=== PATIENT | female | born 1935 | race Caucasian/White ===

== ENCOUNTER 2016-11-05 15:59 | Inpatient (IN) | payer MEDICARE ==
--- NOTE | 2016-11-05 16:32 | EDPRACDOC ---
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 THE PT LIVES WITH HER DAUGHTER. THE DAUGHTER SAID THAT PT HAS BEEN HAVING HALLUCINATIONS AND HAS BEEN ACTING STRANGELY LAST NIGHT. THE PT IS STILL HAVING THESE SX, SO SHE TOOK HER TO HER DR. THE DR SENT HER HERE. PT DENIES ANY PAIN. SHE WAS ADMITTED ON 10/21 FOR COPD AND A.FIB. <Rukhsana Jones - Last Filed: 11/05/16 22:34> <Rosendo Matos - Last Filed: 11/06/16 14:40> - General Information Chief Complaint: Altered Mental Status Stated Complaint: DR. DE LEON SENT FOR DISORIENTATION Time Seen by Provider: 11/05/16 16:20 Home Medications: Home Medications Metoprolol Succinate (XL) [Toprol Xl] 100 mg PO DAILY 10/09/13 Furosemide [Lasix] 40 mg PO DAILY 10/16/13 Paroxetine [Paxil] 40 mg PO DAILY 10/21/13 Pantoprazole Sodium [Protonix] 40 mg PO DAILY 02/22/15 Aspirin (Enteric Coated) [Ecotrin] 81 mg PO DAILY 10/21/16 Ergocalciferol (Vitamin D2) [Vitamin D] 50,000 units PO We@0900 10/21/16 Loperamide HCl [Loperamide] 2 - 4 mg PO Q4H PRN 10/21/16 Potassium Chloride [Klor-Con M10] 10 meq PO DAILY 10/21/16 Magnesium Oxide [Mag-Ox] 400 mg PO BID #120 tablet 10/25/16 Albuterol/Ipratropium Neb [Duoneb] 3 ml NEB Q6H PRN 11/05/16 Donepezil HCl [Aricept] 5 mg PO DAILY 11/05/16 Lisinopril [Prinivil] 10 mg PO DAILY 11/05/16 Mirtazapine [Remeron] 15 mg PO HS 11/05/16 Prednisone [Deltasone, Orasone] 10 mg PO DAILY 11/05/16 Allergies/Adverse Reactions: Allergies Allergy/AdvReac Type Severity Reaction Status Date / Time diazepam [From Valium] Allergy Unknown/See Verified 11/05/16 17:46 Comments morphine Allergy Unknown Verified 11/05/16 17:46 Penicillins Allergy Rash-Genera Verified 11/05/16 17:46 lized Tetracyclines Allergy Hives* Verified 11/05/16 17:46 [Tetracycline Analogues] IVP DYE Allergy Difficulty Uncoded 11/05/16 17:46 Breathing ED Past Medical History - Patient Medical History Cardiac History: Reports: Atrial Fibrillation, Hypertension, Congestive Heart Failure (Diastolic. ECHO 10/10/13: EF65-70%. Mild-mod MR, TR. Pulm 31mmHg), Heart Attack, Stress Test (11/2014: SMALL LV hyperdynamic, resid 11 mL, EF82%. No rev ischemia), Hypercholesterolemia Respiratory History: Reports: COPD, Pneumonia, Emphysema GI/ History: Reports: Urinary Tract Infection Musculoskeletal History: Reports: Osteoarthritis Psychological History: Denies: Depression, Substance Use Disorder Systemic History: Reports: Cancer (SKIN). Denies: Anemia Surgical History: Reports: Hysterectomy, Hernia Surgery - Family Medical History Reports: Cancer (Father with cancer, but at 97 yo. Mother: Throat cancer.) , Respiratory Disorders (COPD) - Social Medical History Smoking Status: Former smoker Social History: Denies: Substance Use Disorder ETOH: None Substance Abuse: None Lives With: Family Lives In: Home <Rukhsana Jones - Last Filed: 11/05/16 22:34> EDM Review of Systems - Review of Systems ROS Negative Except as Marked: Yes All systems reviewed and were negative except as marked Psychiatric: Hallucinations, Insomnia <Rukhsana Jones - Last Filed: 11/05/16 22:34> - Physical Exam Constitutional: No apparent distress, Alert (Awake), Other (CACHECTIC) Oriented to: Time, Person, Place Last recorded Vital Signs: Last Vital Signs Temp 98.0 F 11/05/16 16:09 Pulse 85 11/05/16 16:09 Resp 20 11/05/16 16:09 BP 139/80 11/05/16 16:09 Pulse Ox 95 11/05/16 16:09 Oxygen Pulse Oxygen Saturation 95 O2 Device Room Air Oxygen Flow Rate Fraction of Inspired Oxygen ( FIO2) - HEENT Head: Normal ( normocephalic) Eye Exam: Normal (PERRL, EOMI, Sclera white) Oropharynx: Normal (Pharynx:Moist without exudate,Gums-no swelling) ENT EAC: Normal TMJ: Normal Nose: No Symptoms Reported (septum midline) Neck: Normal (FROM, trachea at midline) - Respiratory/Cardiovascular Respiratory: Normal - CTA (BBS clear to auscultation without adventitious sounds ) Cardiovascular: Normal (RRR without murmur, gallop or rub) - GI Auscultation: Normal (NABS) Palpation: Normal (Soft,No rebound or guarding, non distended) Tenderness: Non tender Lopez's Sign: Negative - Musculoskeletal Back: Normal (Non-Tender) Extremities: Normal (Normal tone, Pulses 2+ No cyanosis or edema, FROM) - Integumentary Skin: Normal, Warm, Dry Lymphatics: Normal (no adenopathy) - Neurologic Memory Impaired: Unable to Test Motor Function: Normal (Normal tone, Pulses 2+ No cyanosis or edema, FROM) Cranial Nerve: Unable to Test Cerebellar: Unable to Test Perception: Visual Hallucinations <Rukhsana Jones - Last Filed: 11/05/16 22:34> - Physical Exam Last recorded Vital Signs: Last Vital Signs Temp 97.8 F 11/05/16 19:30 Pulse 99 11/06/16 10:36 Resp 20 11/06/16 10:36 BP 118/69 11/06/16 10:36 Pulse Ox 95 11/06/16 10:36 Oxygen Pulse Oxygen Saturation 95 O2 Device Room Air Oxygen Flow Rate Fraction of Inspired Oxygen ( FIO2) <Rosendo Matos - Last Filed: 11/06/16 14:40> - Re-evaluation Re-evaluation 1 Re-evaluation Time: 17:49 (PT STILL DISORIENTED. DAUGHTER WANTS HER EVAL BY . ) - Results 11/05/16 16:35 11/05/16 20:30 - EKG EKG #1 EKG Time: 16:51 -: Yes EKG interpreted by al Rate: bpm: 106 [place]: Normal Rhythm: Afib Block: None Hypertrophy: None ST: Normal EKG #2 EKG Time: 22:15 -: Yes EKG interpreted by al Rate: bpm: 113 Rhythm: Afib Block: None Hypertrophy: None ST: Normal - Diagnostic Imaging Chest Image interpreted by: Radiologist 1. Hyperinflation and bronchitic changes. 2. No focal acute pulmonary abnormality. Head Image interpreted by: Radiologist Stable sequela of prior left REAL ESTATE MANAGER distribution infarct and advanced microvascular disease without acute intracranial process. - Additional Information Additional Information: WHILE PT WAS IN THE TU, PT WENT INTO A.FIB. PT DOES HAVE A HX OF A.FIB. PT HAS NOT HAD ANY OF HER MEDS TO DAY. AFTER PT RECEIVED 20 MG OF CARDIZEM, PT'S HR BACK DOWN TO MID 70S. <Rukhsana Jones - Last Filed: 11/05/16 22:34> - Results 11/05/16 16:35 11/06/16 08:45 WBC 9.4 xk/uL (3.8-10.8) 11/05/16 16:35 RBC 4.31 xM/uL (4.20-5.40) 11/05/16 16:35 Hgb 13.4 g/dL (12.0-16.0) 11/05/16 16:35 Hct 39.8 % (36-47) 11/05/16 16:35 MCV 92 fL (81-99) 11/05/16 16:35 MCH 31.0 pg (27-32) 11/05/16 16:35 MCHC 33.6 g/dl (33-36) 11/05/16 16:35 RDW 14.3 % (11.5-14.5) 11/05/16 16:35 Plt Count 128 xk/uL (130-400) L 11/05/16 16:35 MPV 8.3 fL (7.4-10.4) 11/05/16 16:35 Neut % (Auto) 74.4 % (45-76) 11/05/16 16:35 Lymph % (Auto) 19.5 % (17-44) 11/05/16 16:35 [place] % (Auto) 4.7 % (3-10) 11/05/16 16:35 Eos % (Auto) 0.6 % (0-5) 11/05/16 16:35 Baso % (Auto) 0.8 % (0-2) 11/05/16 16:35 Absolute Neuts (auto) 6.96 xk/uL (1.7-8.2) 11/05/16 16:35 Absolute Lymphs (auto) 1.79 xk/uL (0.65-4.75) 11/05/16 16:35 PT 11.4 SEC (9.2-11.2) H 11/05/16 16:35 INR 1.1 11/05/16 16:35 APTT 23.4 SEC (22-35) 11/05/16 16:35 Sodium 142 mEq/L (137-146) 11/06/16 08:45 Potassium 4.4 mEq/L (3.5-5.1) D 11/06/16 08:45 Chloride 106 mEq/L (98-107) 11/06/16 08:45 Carbon Dioxide 28 mMOL/L (22-33) 11/06/16 08:45 Anion Gap 12 mEq/L (8-16) 11/06/16 08:45 BUN 16 MG/DL (7-17) 11/06/16 08:45 Creatinine 0.80 MG/DL (0.52-1.04) 11/06/16 08:45 Estimated GFR (MDRD) > 60 mL/min (>=60) 11/06/16 08:45 Glucose 98 MG/DL (70-99) 11/06/16 08:45 Calculated Osmolality 274 MOs/Kg (270-290) 11/06/16 08:45 Calcium 8.6 MG/DL (8.4-10.2) 11/06/16 08:45 Corrected Calcium 9.0 MG/DL (8.4-10.2) 11/05/16 16:35 Magnesium 1.60 MG/DL (1.6-2.3) 11/05/16 20:30 Total Bilirubin 1.0 MG/DL (0.2-1.3) 11/05/16 16:35 AST 25 IU/L (14-36) 11/05/16 16:35 ALT 25 IU/L (9-52) 11/05/16 16:35 Alkaline Phosphatase 90 IU/L (55-165) 11/05/16 16:35 Troponin I 0.02 ng/mL (<.04) 11/05/16 20:30 Total Protein 6.8 G/DL (6.3-8.2) 11/05/16 16:35 Albumin 3.6 G/DL (3.5-5.0) 11/05/16 16:35 TSH 2.07 uIU/mL (0.5-4.67) 11/05/16 16:35 Free T4 2.20 ng/dL (0.78-2.19) H 11/05/16 16:35 Free T3 4.36 pg/mL (2.77-5.27) 11/05/16 16:35 Urine Color Yellow 11/05/16 16:35 Urine Clarity Clear 11/05/16 16:35 Urine pH 6.0 (5.0-8.0) 11/05/16 16:35 Ur Specific [place] 1.015 (1.003-1.035) 11/05/16 16:35 Urine Protein 1+ (NEG/TRACE) H 11/05/16 16:35 Urine Glucose (UA) Neg (NEGATIVE) 11/05/16 16:35 Urine Ketones Neg (NEGATIVE) 11/05/16 16:35 Urine Occult Blood Neg (NEG/TRACE) 11/05/16 16:35 Urine Nitrite Neg (NEGATIVE) 11/05/16 16:35 Urine Bilirubin Neg (NEGATIVE) 11/05/16 16:35 Urine Urobilinogen <2.0 MG/DL (0-1) 11/05/16 16:35 Ur Leukocyte Esterase Neg (NEGATIVE) 11/05/16 16:35 Urine RBC 2-5 (0-5) 11/05/16 16:35 Urine WBC 0-2 (0-5) 11/05/16 16:35 Ur Epithelial Cells Occ 11/05/16 16:35 Urine Bacteria Few (NEG/FEW) 11/05/16 16:35 Hyaline Casts 5-10 (0-2) H 11/05/16 16:35 Urine Mucus Occ (NEG/OCC) 11/05/16 16:35 Lab Results 11/05/16 11/05/16 11/05/16 16:35 16:35 16:35 WBC RBC Hgb Hct MCV MCH MCHC RDW Plt Count MPV Neut % (Auto) Lymph % (Auto) [place] % (Auto) Eos % (Auto) Baso % (Auto) Absolute Neuts (auto) Absolute Lymphs (auto) PT 11.4 H INR 1.1 APTT 23.4 Sodium Potassium Chloride Carbon Dioxide Anion Gap BUN Creatinine Estimated GFR (MDRD) Glucose Calculated Osmolality Calcium Corrected Calcium Total Bilirubin AST ALT Alkaline Phosphatase Troponin I Total Protein Albumin TSH 2.07 Free T4 2.20 H Free T3 4.36 Urine Color Yellow Urine Clarity Clear Urine pH 6.0 Ur Specific [place] 1.015 Urine Protein 1+ H Urine Glucose (UA) Neg Urine Ketones Neg Urine Occult Blood Neg Urine Nitrite Neg Urine Bilirubin Neg Urine Urobilinogen <2.0 Ur Leukocyte Esterase Neg Urine RBC 2-5 Urine WBC 0-2 Ur Epithelial Cells Occ Urine Bacteria Few Hyaline Casts 5-10 H Urine Mucus Occ 11/05/16 11/05/16 16:35 16:35 WBC 9.4 RBC 4.31 Hgb 13.4 Hct 39.8 MCV 92 MCH 31.0 MCHC 33.6 RDW 14.3 Plt Count 128 L MPV 8.3 Neut % (Auto) 74.4 Lymph % (Auto) 19.5 [place] % (Auto) 4.7 Eos % (Auto) 0.6 Baso % (Auto) 0.8 Absolute Neuts (auto) 6.96 Absolute Lymphs (auto) 1.79 PT INR APTT Sodium 142 Potassium 2.9 L Chloride 102 Carbon Dioxide 30 Anion Gap 13 BUN 17 Creatinine 0.80 Estimated GFR (MDRD) > 60 Glucose 83 Calculated Osmolality 274 Calcium 8.6 Corrected Calcium 9.0 Total Bilirubin 1.0 AST 25 ALT 25 Alkaline Phosphatase 90 Troponin I 0.02 Total Protein 6.8 Albumin 3.6 TSH Free T4 Free T3 Urine Color Urine Clarity Urine pH Ur Specific [place] Urine Protein Urine Glucose (UA) Urine Ketones Urine Occult Blood Urine Nitrite Urine Bilirubin Urine Urobilinogen Ur Leukocyte Esterase Urine RBC Urine WBC Ur Epithelial Cells Urine Bacteria Hyaline Casts Urine Mucus <Rosendo Matos - Last Filed: 11/06/16 14:40> - Departure Yes I personally saw and evaluated the patient. Disposition: Admit to Education/Counseling Given To: Patient, Family Member Education/Counseling Given Regarding: Diagnosis, Treatment <Rukhsana Jones - Last Filed: 11/05/16 22:34> - Departure Yes I personally saw and evaluated the patient. Disposition: Admit IP To [facility] Decision to Admit Time: 14:35 Decision to admit date: 11/06/16 Decision to admit: from ED - Physician Consulted Hospitalist Time Called: 13:32 Provider Called: Agustín Gallardo Time Manager [employer] Returned Call: 13:32 <Rosendo Matos - Last Filed: 11/06/16 14:40> - Departure Final Diagnosis: Hypokalemia, Dementia, Hallucinations, Paroxysmal a-fib
[2016-11-05 16:46] LABS: AUTOMATED BASOPHIL 0.8 % (0-2); AUTOMATED EOSINOPHIL 0.6 % (0-5); AUTOMATED LYMPH 19.5 % (17-44); AUTOMATED MONOCYTE 4.7 % (3-10); AUTOMATED NEUTROPHIL 74.4 % (45-76); MPV 8.3 fL (7.4-10.4)
--- NOTE | 2016-11-05 16:53 | DIRPT ---
CLINICAL DATA: Mental status changes. Hallucinations. Acting strange last night. EXAM: PORTABLE CHEST 1 VIEW COMPARISON: 10/23/2016 FINDINGS: Lungs are hyperinflated. There is mild perihilar peribronchial thickening. There are no focal consolidations or pleural effusions. No pulmonary edema. IMPRESSION: 1. Hyperinflation and bronchitic changes. 2. No focal acute pulmonary abnormality. Electronically Signed By: Lexis Peck M.D. On: 11/05/2016 16:50
[2016-11-05 16:56] LABS: BLOOD UREA NITROGEN 17 MG/DL (7-17); CALCIUM 8.6 MG/DL (8.4-10.2); CALCULATED OSMOLALITY 274 MOs/Kg (270-290); CHLORIDE 102 mEq/L (98-107); GLUCOSE 83 MG/DL (70-99); PARTIAL THROMB. TIME 23.4 SEC (22-35); PT-INR 1.1; SODIUM LEVEL 142 mEq/L (137-146); TOTAL PROTEIN 6.8 G/DL (6.3-8.2)
[2016-11-05 16:58] LABS: LEUKOCYTES/URINE NEG (NEGATIVE); NITRITE/URINE NEG (NEGATIVE); URINE OCCULT BLOOD NEG (NEG/TRACE); WBC/URINE 0-2 (0-5)
--- NOTE | 2016-11-05 17:45 | DIRPT ---
CLINICAL DATA: Mental status change. Hallucinations. EXAM: CT HEAD WITHOUT CONTRAST TECHNIQUE: Contiguous axial images were obtained from the base of the skull through the vertex without intravenous contrast. COMPARISON: 08/15/2016; brain MRI -08/15/2016 FINDINGS: Re- demonstrated sequela of prior large territory left HOT SEALING MACHINE OPERATOR distribution infarct with associated encephalomalacia within the occipital lobe and mild commensurate ex vacuo dilatation occipital horn of the left lateral ventricle. Grossly unchanged extensive nearly confluent periventricular hypodensities compatible microvascular ischemic disease. Given extensive background parenchymal abnormalities, there is no CT evidence of superimposed acute large territory infarct. No intraparenchymal or extra-axial mass or hemorrhage. Unchanged size and configuration of the ventricles and basilar cisterns. No midline shift. Intracranial atherosclerosis. Limited visualization of the paranasal sinuses and mastoid air cells is normal. No air-fluid levels. Regional soft tissues appear normal. No displaced calvarial fracture. IMPRESSION: Stable sequela of prior left HOT SEALING MACHINE OPERATOR distribution infarct and advanced microvascular disease without acute intracranial process. Electronically Signed By: Bryon Zavala M.D. On: 11/05/2016 17:42
[2016-11-05] MEDS ORDERED: POTASSIUM CHLORIDE 20 MEQ TAB PO ONE ×3 (17:48→22:09)
[2016-11-05] MEDS ORDERED: QUETIAPINE FUMARATE 25 MG TAB PO ONE (17:48)
[2016-11-05] MEDS ORDERED: MAGNESIUM HYDROXIDE 30 ML BOTTLE PO PRN (17:51)
[2016-11-05] MEDS ORDERED: ONDANSETRON HCL 4 MG ODT TAB PO PRN (17:51)
[2016-11-05] MEDS ORDERED: ACETAMINOPHEN 325 MG/TAB TABLET PO PRN (17:51)
[2016-11-05] MEDS ORDERED: GUAIFENESIN 200 MG/10 ML UDC PO PRN (17:51)
[2016-11-05] MEDS ORDERED: Docusate Sodium 100 MG CAP PO PRN (17:51)
[2016-11-05 17:56] LABS: FREE T3 4.36 pg/mL (2.77-5.27); FREE T4 2.2 ng/dL (0.78-2.19)
[2016-11-05 18:10] LABS: hTSH 2.07 uIU/mL (0.5-4.67)
[2016-11-05] MEDS ORDERED: Albuterol/Ipratropium Neb 3 ML NEB NEB PRN (18:17)
[2016-11-05 20:58] LABS: BLOOD UREA NITROGEN 19 MG/DL (7-17); CALCIUM 8.4 MG/DL (8.4-10.2); CALCULATED OSMOLALITY 271 MOs/Kg (270-290); CHLORIDE 102 mEq/L (98-107); GLUCOSE 102 MG/DL (70-99); SODIUM LEVEL 140 mEq/L (137-146)
[2016-11-05] MEDS: MIRTAZAPINE 15 MG TAB PO SCH (21:42)
[2016-11-05] MEDS: MAGNESIUM OXIDE 400 MG TAB PO SCH (21:42)
[2016-11-05] MEDS ORDERED: DILTIAZEM 25 MG/5 ML VIAL IV ONE (22:06)
[2016-11-06] MEDS: PANTOPRAZOLE 40 MG TAB PO SCH (05:13)
[2016-11-06] MEDS: METOPROLOL (TOPROL-XL) 100 MG TAB PO SCH (07:32)
[2016-11-06] MEDS ORDERED: POTASSIUM CHLORIDE 10 MEQ TABLET PO SCH (09:00)
[2016-11-06] MEDS: PREDNISONE 10 MG TAB PO SCH (09:01)
[2016-11-06] MEDS: FUROSEMIDE 40 MG TAB PO SCH (09:01)
[2016-11-06] MEDS: POTASSIUM CHLORIDE 20 MEQ TAB PO SCH (09:01)
[2016-11-06] MEDS: DONEPEZIL HCL 5 MG TAB PO SCH (09:01)
[2016-11-06] MEDS: QUETIAPINE FUMARATE 25 MG TAB PO SCH (09:02)
[2016-11-06] MEDS: PAROXETINE 20 MG TAB PO SCH (09:02)
[2016-11-06] MEDS: MAGNESIUM OXIDE 400 MG TAB PO SCH ×2 (09:03→21:55)
[2016-11-06] MEDS: LISINOPRIL 10 MG TAB PO SCH (09:03)
[2016-11-06 09:40] LABS: BLOOD UREA NITROGEN 16 MG/DL (7-17); CALCIUM 8.6 MG/DL (8.4-10.2); CALCULATED OSMOLALITY 274 MOs/Kg (270-290); CHLORIDE 106 mEq/L (98-107); GLUCOSE 98 MG/DL (70-99); SODIUM LEVEL 142 mEq/L (137-146)
--- NOTE | 2016-11-06 12:50 | DIRPT ---
CLINICAL DATA: Altered mental status since yesterday. Hallucinations. Dementia. EXAM: CT HEAD WITHOUT CONTRAST TECHNIQUE: Contiguous axial images were obtained from the base of the skull through the vertex without intravenous contrast. COMPARISON: 11/05/2016. 08/15/2016. FINDINGS: The brain shows generalized atrophy. There is chronic small vessel disease throughout the hemispheric white matter. There are old small vessel infarctions in the left basal ganglia. Old infarction in the left posterior medial temporal lobe and occipital lobes consistent with LONG WALL SHEAR OPERATOR territory infarction. No sign of recent infarction, mass lesion, hemorrhage, hydrocephalus or extra-axial collection. The calvarium is unremarkable. Sinuses are clear. Small amount of fluid in the mastoid air cells on the right. IMPRESSION: No change. No acute finding by CT. Atrophy and chronic small vessel disease. 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 Electronically Signed By: Isauro Umanzor M.D. On: 11/06/2016 12:48
[2016-11-06] MEDS ORDERED: GUAIFENESIN 200 MG/10 ML UDC PO PRN (14:39)
[2016-11-06] MEDS ORDERED: ACETAMINOPHEN 325 MG/TAB TABLET PO PRN (14:39)
[2016-11-06] MEDS ORDERED: PROMETHAZINE 25 MG/ML VIAL IV PRN (14:39)
[2016-11-06] MEDS ORDERED: DOCUSATE-SENNA CONCENTRATE TAB PO PRN (14:39)
[2016-11-06] MEDS ORDERED: BISACODYL 5 MG TAB PO PRN (14:39)
[2016-11-06] MEDS ORDERED: BENZONATATE 100 MG PERLES PO PRN (14:39)
[2016-11-06] MEDS ORDERED: SIMETHICONE 80 MG TAB PO PRN (14:39)
[2016-11-06] MEDS ORDERED: SODIUM CHLORIDE 0.9% 3 ML FLUSH FLUSH PRN (14:39)
[2016-11-06] MEDS ORDERED: ONDANSETRON HCL 4 MG/2 ML VIAL IV PRN (14:39)
[2016-11-06 17:04] LABS: ALL NEG? YES; MDMA* NEG (NEGATIVE); METHAMPHETAMINES NEG (NEGATIVE); OXYCODONE NEG (NEGATIVE)
[2016-11-06] MEDS: SODIUM CHLORIDE 0.9% 3 ML FLUSH FLUSH SCH (17:32)
[2016-11-06] MEDS: ENOXAPARIN 30 MG/0.3 ML PFS SQ SCH (17:32)
[2016-11-06] MEDS: D5W-1/2NS 1,000 ML IV SCH (17:32)
[2016-11-06] MEDS ORDERED: Vaccine Screening Complete SCH (18:00)
--- NOTE | 2016-11-06 20:41 | HISTPHYS ---
- Chief Complaint Mental status change - History of Present Illness The patient is an 81-year-old white female who was apparently in her usual state of health until November 04 when she was noted by her daughter to be having visual hallucinations. The patient had been previously well and was in fact hospitalized in October and had a normal mental status at that time. The daughter states that she discovered today that her mother had been getting mirtazapine 30 mg at bedtime since she was discharged from the hospital when her previous dose was 15 mg. she denied any somnolence of her mother. Her mother apparently has had no recent injuries or falls. She has had no previous psych history. She has no new medications except for the new dose of mirtazapine. Dr. Reyna had changed her Celexa to Paxil this was not a recent change. The patient was initially evaluated as ATU patient but since she has no prior history and there is no explanation for her behavior she will be admitted to the hospital. The patient was given a dose of Seroquel in the emergency department and over her time in the emergency department has had a decrease in her visual hallucinations. - Medical History Cardiac History: Reports: Atrial Fibrillation, Hypertension, Congestive Heart Failure (Diastolic. ECHO 10/10/13: EF65-70%. Mild-mod MR, TR. Pulm 31mmHg), Heart Attack Respiratory History: Reports: COPD, Pneumonia, Emphysema GI/ History: Reports: Urinary Tract Infection Musculoskeletal History: Reports: No Significant History Systemic History: Denies: Anemia, Diabetes, Hypothyroidism Neurological History: Reports: Metabolic encephalopathy (Previously only with infections and after a prolonged ICU stay.). Denies: Cerebrovascular Accident, Seizures, Dementia Psychological History: Denies: Depression, Alcoholism, Substance Use Disorder - Surgical History Reports: Hernia Surgery - Medictions/Allergies Allergies diazepam [From Valium] Allergy (Verified 11/06/16 17:00) Unknown/See Comments "MAKES ME MEAN" morphine Allergy (Verified 11/06/16 17:00) Unknown Penicillins Allergy (Verified 11/06/16 17:00) Rash-Generalized Tetracyclines [Tetracycline Analogues] Allergy (Verified 11/06/16 17:00) Hives* IVP DYE Allergy (Uncoded 11/06/16 17:00) Difficulty Breathing Home Medications Metoprolol Succinate (XL) [Toprol Xl] 100 mg PO DAILY 10/09/13 Furosemide [Lasix] 20 mg PO DAILY PRN 10/16/13 Paroxetine [Paxil] 40 mg PO DAILY 10/21/13 Pantoprazole Sodium [Protonix] 40 mg PO DAILY 02/22/15 Aspirin (Enteric Coated) [Ecotrin] 81 mg PO DAILY 10/21/16 Ergocalciferol (Vitamin D2) [Vitamin D] 50,000 units PO We@0900 10/21/16 Loperamide HCl [Loperamide] 2 - 4 mg PO Q4H PRN 10/21/16 Potassium Chloride [Klor-Con M10] 10 meq PO DAILY 10/21/16 Magnesium Oxide [Mag-Ox] 400 mg PO BID #120 tablet 10/25/16 Albuterol/Ipratropium Neb [Duoneb] 3 ml NEB Q6H PRN 11/05/16 Donepezil HCl [Aricept] 5 mg PO DAILY 11/05/16 Lisinopril [Prinivil] 10 mg PO DAILY 11/05/16 Mirtazapine [Remeron] 15 mg PO HS 11/05/16 Prednisone [Deltasone, Orasone] 10 mg PO DAILY 11/05/16 - Family History Reports: Cancer (Father with cancer, but at 97 yo. Mother: Throat cancer.) - Social History Travel Outside of [place] in the Last 3 Months?: No Lives: Alone Smoking Status: Former smoker Social History: Denies: Alcohol Use, Benzodiazipine Use - Review of Systems Yes Review of systems cannot be obtained due to the patient's medical condition (She is confused about where she is. Review of systems per the daughter) Constitutional: negative: Chills, Fever Eyes: Uses Glasses/Contact lenses Ears: No Symptoms Reported Nose: No Symptoms Reported Mouth: No Symptoms Reported Throat/Neck: No Symptoms Reported Respiratory: No Symptoms Reported Cardiovascular: No Symptoms Reported Gastrointestinal: No Symptoms Reported Genitourinary: No Symptoms Reported. negative: Frequency, Nocturia, Foul Ordor Neurological: negative: Gait Difficulty, Headache, Speech Difficulty, Weakness, Vertigo, Tremors Musculoskeletal:: Osteoarthritis (Mild) Integumentary: No Symptoms Reported Allergic/Immunologic: No Symptoms Reported Hematologic: No Symptoms Reported Endocrine: negative: Weight Gain, Weight Loss, Cold Intolerance, Polyuria, Diabetes, Hypothyroidism Psychiatric: Anxiety (Daughter states the Paxil is for anxiety), Depression ( Daughter states the Remeron was for sleeping and to improve her appetite.), Hallucinations (Visual hallucinations are new per the daughter) - Physical Exam Vital Signs: Initial Vitals Temperature 98.0 F 11/05/16 16:09 Pulse Rate 85 11/05/16 16:09 Respiratory Rate 20 11/05/16 16:09 Blood Pressure 139/80 11/05/16 16:09 Pulse Oxygen Saturation 95 11/05/16 16:09 Constitutional: No apparent distress, Confused Oriented to: Person - HEENT Head: Normal Eye: Normal. negative: Conjunctival Injection Oropharynx: Normal Tympanic Membrane: Normal, Obscured (Mild cerumen) ENT EAC: Cerumen Nose: negative: Congestion, Discharge Respiratory: Normal - CTA. negative: Accessory Muscle Use Cardiovascular: Irregular - GI Auscultation: Normal Palpation: Normal. negative: Enlarged liver, Enlarged spleen Tenderness: Non tender Rectal Exam: Deferred - Musculoskeletal Back: Other (Nontender to palpation .skin was not viewed) Extremities: Normal, Pedal Pulse (Trace). negative: Pedal Edema Spine: non-tender - Integumentary Skin: Normal Lymphatics: Normal. negative: Adenopathy - Neurologic Memory Impaired: Unable to Test Motor Function: Normal Cranial Nerve: Other (Difficult to test. The patient has normal facial movement and seems to have normal strength in her upper and lower extremities. Sensory exam was difficult as she is easily distracted) Cerebellar: Ataxia (Patient has difficulty with finger to nose bilaterally) Mood Description: Anxious Thought: Rambling Conversation Perception: Visual Hallucinations (Patient is denying these now. But she does have a tendency look to the left and was clearly having visual hallucinations in the emergency department) - Focused CV Perfusion Exam Vital Signs: Last Vital Signs Temp 98.7 F 11/06/16 17:06 Pulse 91 11/06/16 17:06 Resp 20 11/06/16 17:06 BP 120/78 11/06/16 17:06 Pulse Ox 95 11/06/16 17:06 - Lab Results Laboratory Results - last 24 hr 11/05/16 11/05/16 11/05/16 20:30 20:30 20:30 Sodium 140 Potassium 3.3 L Chloride 102 Carbon Dioxide 28 Anion Gap 13 BUN 19 H Creatinine 0.90 Estimated GFR (MDRD) > 60 Glucose 102 H Calculated Osmolality 271 Calcium 8.4 Magnesium 1.60 Creatine Kinase Troponin I 0.02 Urine Opiates Screen Ur Oxycodone Screen Urine Methadone Screen Ur Barbiturates Screen Ur Tricyclics Screen Ur Phencyclidine Scrn Ur Amphetamines Screen U Methamphetamines Scrn Urine MDMA Screen U Benzodiazepines Scrn Urine Cocaine Screen Ur THC Screen 11/06/16 11/06/16 11/06/16 08:45 16:25 17:25 Sodium 142 Potassium 4.4 D Chloride 106 Carbon Dioxide 28 Anion Gap 12 BUN 16 Creatinine 0.80 Estimated GFR (MDRD) > 60 Glucose 98 Calculated Osmolality 274 Calcium 8.6 Magnesium Creatine Kinase 33 Troponin I Urine Opiates Screen Neg Ur Oxycodone Screen Neg Urine Methadone Screen Neg Ur Barbiturates Screen Neg Ur Tricyclics Screen Neg Ur Phencyclidine Scrn Neg Ur Amphetamines Screen Neg U Methamphetamines Scrn Neg Urine MDMA Screen Neg U Benzodiazepines Scrn Neg Urine Cocaine Screen Neg Ur THC Screen Neg 11/06/16 20:20 Sodium Potassium Chloride Carbon Dioxide Anion Gap BUN Creatinine Estimated GFR (MDRD) Glucose Calculated Osmolality Calcium Magnesium Creatine Kinase 39 Troponin I Urine Opiates Screen Ur Oxycodone Screen Urine Methadone Screen Ur Barbiturates Screen Ur Tricyclics Screen Ur Phencyclidine Scrn Ur Amphetamines Screen U Methamphetamines Scrn Urine MDMA Screen U Benzodiazepines Scrn Urine Cocaine Screen Ur THC Screen - Diagnostic Findings Exam(s): [id number] CT/CT HEAD W/O CM CLINICAL DATA: Altered mental status since yesterday. Hallucinations. Dementia. EXAM: CT HEAD WITHOUT CONTRAST TECHNIQUE: Contiguous axial images were obtained from the base of the skull through the vertex without intravenous contrast. COMPARISON: 11/05/2016. 08/15/2016. FINDINGS: The brain shows generalized atrophy. There is chronic small vessel disease throughout the hemispheric white matter. There are old small vessel infarctions in the left basal ganglia. Old infarction in the left posterior medial temporal lobe and occipital lobes consistent with PET ADOPTION COUNSELOR territory infarction. No sign of recent infarction, mass lesion, hemorrhage, hydrocephalus or extra-axial collection. The calvarium is unremarkable. Sinuses are clear. Small amount of fluid in the mastoid air cells on the right. IMPRESSION: No change. No acute finding by CT. Atrophy and chronic small vessel disease. 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 Electronically Signed By: Isauro Umanzor M.D. On: 11/06/2016 12:48 Electronically Signed By: Isauro Umanzor MD Electronically Signed Date/Time: [id number]([id number]): [id number] RAD/DG CHEST PORTABLE CLINICAL DATA: Mental status changes. Hallucinations. Acting strange last night. EXAM: PORTABLE CHEST 1 VIEW COMPARISON: 10/23/2016 FINDINGS: Lungs are hyperinflated. There is mild perihilar peribronchial thickening. There are no focal consolidations or pleural effusions. No pulmonary edema. IMPRESSION: 1. Hyperinflation and bronchitic changes. 2. No focal acute pulmonary abnormality. Electronically Signed By: Lexis Peck M.D. On: 11/05/2016 16:50 - Assessment (1) Hallucinations R44.3 - HALLUCINATIONS, UNSPECIFIED Acute Present on Admission: Yes Unclear etiology. This barely is a new finding for this patient. Urine drug screen has been ordered and is negative. She does not appear to have any active infection. I would like to hold the Seroquel and see if her behavior recurs as it has improved somewhat. MRI of the brain since she has some cerebellar findings. (2) Hypokalemia E87.6 - HYPOKALEMIA Acute Present on Admission: Yes Improved with potassium in the emergency department although her hallucinations did not improve along the same time course. Will follow. (3) Paroxysmal a-fib I48.0 - PAROXYSMAL ATRIAL FIBRILLATION Chronic Present on Admission: Yes Continue outpatient medications (4) Coronary arteriosclerosis in [place] artery I25.10 - ATHSCL HEART DISEASE OF [place] CORONARY ARTERY W/O ANG PCTRS Chronic Present on Admission: Yes Continue outpatient medications. Case Care Discussed with: Patient, Family, Nursing Staff Total Time: 55 minutes Critical Care: No Code: 69840
[2016-11-06] MEDS: MIRTAZAPINE 15 MG TAB PO SCH (21:55)
[2016-11-06 23:11] LABS: CA OXALATE 3+; LEUKOCYTES/URINE NEG (NEGATIVE); NITRITE/URINE NEG (NEGATIVE); RBC/URINE 0-2 (0-5); URINE OCCULT BLOOD NEG (NEG/TRACE); WBC/URINE 0-2 (0-5)
[2016-11-07] MEDS: SODIUM CHLORIDE 0.9% 3 ML FLUSH FLUSH SCH ×2 (05:52→17:46)
[2016-11-07] MEDS: PANTOPRAZOLE 40 MG TAB PO SCH (06:06)
[2016-11-07 08:13] LABS: BLOOD UREA NITROGEN 22 MG/DL (7-17); CALC CORRECTED 9.5 MG/DL (8.4-10.2); CALCIUM 8.5 MG/DL (8.4-10.2); CALCULATED OSMOLALITY 268 MOs/Kg (270-290); CHLORIDE 105 mEq/L (98-107); GLUCOSE 84 MG/DL (70-99); SODIUM LEVEL 138 mEq/L (137-146); TOTAL PROTEIN 5.8 G/DL (6.3-8.2)
[2016-11-07] MEDS: POTASSIUM CHLORIDE 20 MEQ TAB PO SCH (09:01)
[2016-11-07] MEDS: DONEPEZIL HCL 5 MG TAB PO SCH (09:02)
[2016-11-07] MEDS: FUROSEMIDE 40 MG TAB PO SCH (09:02)
[2016-11-07] MEDS: PREDNISONE 10 MG TAB PO SCH (09:03)
[2016-11-07] MEDS: MAGNESIUM OXIDE 400 MG TAB PO SCH ×2 (09:03→23:07)
[2016-11-07] MEDS: PAROXETINE 20 MG TAB PO SCH (09:03)
[2016-11-07] MEDS: QUETIAPINE FUMARATE 25 MG TAB PO SCH (09:04)
[2016-11-07] MEDS: LISINOPRIL 10 MG TAB PO SCH (09:04)
[2016-11-07] MEDS: METOPROLOL (TOPROL-XL) 100 MG TAB PO SCH (09:04)
--- NOTE | 2016-11-07 14:57 | DIRPT ---
CLINICAL DATA: New onset of visual hallucinations for the past 2 days. EXAM: MRI HEAD WITHOUT AND WITH CONTRAST TECHNIQUE: Multiplanar, multiecho pulse sequences of the brain and surrounding structures were obtained without and with intravenous contrast. CONTRAST: 8 mL MultiHance COMPARISON: 11/06/[address] and 08/15/2016 MRI FINDINGS: There is no evidence of acute infarct, mass, midline shift, or extra-axial fluid collection. A moderate-sized chronic left CARPENTER INSPECTOR territory infarct is again seen involving the posterior medial temporal and occipital lobes with some associated chronic blood products or mineralization. There is ex vacuo dilatation of the left lateral ventricle. Mild to moderate global cerebral atrophy is noted. Patchy to confluent T2 hyperintensities in the cerebral white matter and demarcus are similar to the prior MRI and compatible with rather extensive chronic small vessel ischemic disease. Chronic lacunar infarcts are noted in the thalami, basal ganglia, genu of the corpus callosum on the right, and white matter of the right frontal lobe. No abnormal enhancement is identified. Orbits are unremarkable. Paranasal sinuses are clear. There are chronic, moderate to large right and small to moderate left mastoid effusions. Major intracranial vascular flow voids are preserved. IMPRESSION: 1. No acute intracranial abnormality or mass. 2. Extensive chronic ischemic changes as above. Electronically Signed By: Robson Archibald M.D. On: 11/07/2016 14:54
--- NOTE | 2016-11-07 15:00 | GENMEDPROG ---
Subjective Note: The patient denies any headache or new complaints. She does not recall most of the events of yesterday but does know from her daughter that she had her behavior was abnormal. Patient denies any behavior issues in the past. She denies any inadvertent ingestion of someone else's pills or denies having any issue with her on medication. Current Medication List: Reviewed Currently: Reports: Tobacco Use/Hx, Ambulating. Denies: Cough, Wheezing, Nausea and Vomiting, Abdominal Pain, Fever/Chills, Chest Pain - Physical Examination Vital Signs and I&O: Last Vital Signs Temp 98.9 F 11/07/16 06:22 Pulse 72 11/07/16 06:22 Resp 20 11/07/16 06:22 BP 156/90 11/07/16 06:22 Pulse Ox 96 11/07/16 06:22 Oxygen Pulse Oxygen Saturation 96 O2 Device Room Air Oxygen Flow Rate Fraction of Inspired Oxygen ( FIO2) Intake & Output 11/04/16 11/05/16 11/06/16 11/07/16 23:59 23:59 23:59 23:59 Intake Total 0 438 Output Total 500 Balance 0 -62 Patient's weight 42.184 kg 40.965 kg General: Alert, Oriented x3, Cooperative, No acute distress, Weakness (Mild weakness noted by patient) HEENT: Anicteric Sclera, Mucous membr. moist/pink Neck: Full range of motion, Normal inspection Lymphatics: Normal. negative: Adenopathy Respiratory: Diminished (Decreased breath sounds throughout but good excursion) . negative: Accessory Muscle Use Cardiovascular: Regular rate and rhythm, No Gallops,Rubs/Murmurs. negative: LE Edema GI: Normal bowel sounds, Soft, Non tender, No hepatospenomegaly Extremities/Musculoskeletal: Normal pulses. negative: Edema Skin: Warm,Dry and Intact Neurological: Normal speech, Cranial nerves 3-12 NL, Other (Can do finger-to- nose more reliably today.) Psych/Mental Status: Appropriate, Normal Affect, Cooperative Lab/DI/Studies Reviewed: 11/05/16 16:35 11/07/16 06:17 Patient Name: HUSSEIN ANDREWS Courtesy Copy to: Diagnostic Imaging Report [facility] [address] [place] [address] [phone] Diagnostic Imaging Services Courtesy Copy to: Diagnostic Imaging Report Exam(s): [id number] MRI/MRI HEAD WITH WITHOUT CM CLINICAL DATA: New onset of visual hallucinations for the past 2 days. EXAM: MRI HEAD WITHOUT AND WITH CONTRAST TECHNIQUE: Multiplanar, multiecho pulse sequences of the brain and surrounding structures were obtained without and with intravenous contrast. CONTRAST: 8 mL MultiHance COMPARISON: 11/06/[address] and 08/15/2016 MRI FINDINGS: There is no evidence of acute infarct, mass, midline shift, or extra-axial fluid collection. A moderate-sized chronic left DIRECTOR OF DIVERSITY AND INCLUSION territory infarct is again seen involving the posterior medial temporal and occipital lobes with some associated chronic blood products or mineralization. There is ex vacuo dilatation of the left lateral ventricle. Mild to moderate global cerebral atrophy is noted. Patchy to confluent T2 hyperintensities in the cerebral white matter and demarcus are similar to the prior MRI and compatible with rather extensive chronic small vessel ischemic disease. Chronic lacunar infarcts are noted in the thalami, basal ganglia, genu of the corpus callosum on the right, and white matter of the right frontal lobe. No abnormal enhancement is identified. Orbits are unremarkable. Paranasal sinuses are clear. There are chronic, moderate to large right and small to moderate left mastoid effusions. Major intracranial vascular flow voids are preserved. IMPRESSION: 1. No acute intracranial abnormality or mass. 2. Extensive chronic ischemic changes as above. Electronically Signed By: Robson Archibald M.D. On: 11/07/2016 14:54 Electronically Signed By: Osiel Archibald MD Electronically Signed Date/Time: [id number] Dictate Date/Time: 11/07/16 1445 Technologist: Lashonda Evans Transcribed By: Lesley Transcribed Date/Time: 11/07/16 1454 - Assessment (1) Hallucinations Acute R44.3 - HALLUCINATIONS, UNSPECIFIED Comment/Plan: Patient's hallucinations seem to have cleared. Still unknown etiology. I did not give her Seroquel last night to see if she had an on going need or to see if if her behavior had cleared. Does seem to have cleared. MRI shows some chronic ischemic changes but nothing to explain the behavior. (2) Hypokalemia Acute E87.6 - HYPOKALEMIA Comment/Plan: The potassium improved in the emergency department. Will follow labs. (3) Paroxysmal a-fib Chronic I48.0 - PAROXYSMAL ATRIAL FIBRILLATION Comment/Plan: Continue outpatient medications (4) Coronary arteriosclerosis in [place] artery Chronic I25.10 - ATHSCL HEART DISEASE OF [place] CORONARY ARTERY W/O ANG PCTRS Comment/Plan: Continue outpatient medications. Case Care Discussed with: Patient, Nursing Staff Education/Counseling Given To: Patient Education/Counseling Given Regarding: Diagnosis, Treatment Total Time: 35 minutes Critical Care: No Couseling Time (>50% in counseling/coordination): Yes Code: 11528 (12+)
[2016-11-07] MEDS: D5W-1/2NS 1,000 ML IV SCH (17:45)
[2016-11-07] MEDS: ENOXAPARIN 30 MG/0.3 ML PFS SQ SCH (17:46)
[2016-11-07] MEDS: MIRTAZAPINE 15 MG TAB PO SCH (23:07)
[2016-11-08] MEDS: SODIUM CHLORIDE 0.9% 3 ML FLUSH FLUSH SCH ×2 (06:56→17:24)
[2016-11-08] MEDS: PANTOPRAZOLE 40 MG TAB PO SCH (06:57)
--- NOTE | 2016-11-08 10:16 | GENMEDPROG ---
Chief Complaint: VISUAL HALLUCINATIONS Subjective Note: Patient is feeling better this morning. She is hungry. she can recall events of yesterday. She does not recall the details of the last time she was at home. She does not recall any of her emergency room stay. sHe does remember that her daughter told her she was having visible visual hallucinations. She denies that now. I spoke with the daughter by telephone. She is pleased that her mother is doing better. She is concerned that recently her mother has had some lower extremity weakness and some slowness of gait. She would like physical therapy evaluation. 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 Denies: Cough, Wheezing, Nausea and Vomiting, Abdominal Pain, Fever/ Chills, Chest Pain DVT Prophylaxis: Yes - Physical Examination Vital Signs and I&O: Last Vital Signs Temp 98.7 F 11/08/16 05:15 Pulse 80 11/08/16 05:15 Resp 20 11/08/16 05:15 BP 140/83 11/08/16 05:15 Pulse Ox 98 11/08/16 05:15 Oxygen Pulse Oxygen Saturation 98 O2 Device Room Air Oxygen Flow Rate Fraction of Inspired Oxygen ( FIO2) Intake & Output 11/05/16 11/06/16 11/07/16 11/08/16 23:59 23:59 23:59 23:59 Intake Total 0 1158 186 Output Total 1100 300 Balance 0 58 -114 Patient's weight 42.184 kg 40.965 kg 41.334 kg General: Alert, Oriented x3 (Initially thought the date was 2015 but was able to correct herself), Cooperative, No acute distress HEENT: Anicteric Sclera, Mucous membr. moist/pink Neck: Full range of motion, Normal inspection Lymphatics: Normal. negative: Adenopathy Respiratory: Diminished (Decreased breath sounds throughout but good excursion) . negative: Accessory Muscle Use Cardiovascular: Regular rate and rhythm, No Gallops,Rubs/Murmurs. negative: LE Edema GI: Normal bowel sounds, Soft, Non tender Extremities/Musculoskeletal: Normal pulses, Other (Upper extremity strength normal. Lower extremities strength 4+ over 5. No cogwheeling noted, no tremor) . 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 She has a much easier time following commands. In bed she has 4+ over 5 lower extremity strength.) Psych/Mental Status: Appropriate, Normal Affect, Cooperative, Other (She could not give me her address but was able to describe where she lived. She does live with her daughter.) - Assessment (1) Hallucinations Acute R44.3 - HALLUCINATIONS, UNSPECIFIED Comment/Plan: Patient's symptoms have resolved. She does seem to have some baseline dementia although that would not explain the sudden visual hallucinations. Unclear etiology. (2) Hypokalemia Acute E87.6 - HYPOKALEMIA Comment/Plan: The potassium improved in the emergency department. Will follow labs. (3) Paroxysmal a-fib Chronic I48.0 - PAROXYSMAL ATRIAL FIBRILLATION Comment/Plan: Currently in sinus rhythm by exam. Continue outpatient medications (4) Coronary arteriosclerosis in [place] artery Chronic I25.10 - ATHSCL HEART DISEASE OF [place] CORONARY ARTERY W/O ANG PCTRS Comment/Plan: Continue outpatient medications. (5) Lower extremity weakness Acute R29.898 - OTH SYMPTOMS AND SIGNS INVOLVING THE MUSCULOSKELETAL SYSTEM Qualifiers: Laterality: bilateral Qualified Code(s): R29.898 - Other symptoms and signs involving the musculoskeletal system Comment/Plan: Patient's lower extremity weakness was present prior to admission according to the daughter. She requests a physical therapy evaluation to see if she would be a candidate for any inpatient rehab. I will consult PT Case Care Discussed with: Patient, Family, Nursing Staff Education/Counseling Given To: Patient, Family Member Education/Counseling Given Regarding: Diagnosis, Treatment, Prognosis Total Time: 30 minutes Code: 63270 (12+)
[2016-11-08] MEDS: POTASSIUM CHLORIDE 20 MEQ TAB PO SCH (10:30)
[2016-11-08] MEDS: DONEPEZIL HCL 5 MG TAB PO SCH (10:30)
[2016-11-08] MEDS: PREDNISONE 10 MG TAB PO SCH (10:30)
[2016-11-08] MEDS: PAROXETINE 20 MG TAB PO SCH (10:31)
[2016-11-08] MEDS: FUROSEMIDE 40 MG TAB PO SCH (10:31)
[2016-11-08] MEDS: MAGNESIUM OXIDE 400 MG TAB PO SCH ×2 (10:31→21:13)
[2016-11-08] MEDS: LISINOPRIL 10 MG TAB PO SCH (10:32)
[2016-11-08] MEDS: METOPROLOL (TOPROL-XL) 100 MG TAB PO SCH (10:32)
[2016-11-08] MEDS: QUETIAPINE FUMARATE 25 MG TAB PO SCH (10:32)
[2016-11-08 14:35] VITALS: BMI 17.2
[2016-11-08] MEDS: D5W-1/2NS 1,000 ML IV SCH (17:23)
[2016-11-08] MEDS: ENOXAPARIN 30 MG/0.3 ML PFS SQ SCH (17:25)
[2016-11-08] MEDS: MIRTAZAPINE 15 MG TAB PO SCH (21:13)
[2016-11-09] MEDS: D5W-1/2NS 1,000 ML IV SCH ×2 (05:56→17:09)
[2016-11-09] MEDS: PANTOPRAZOLE 40 MG TAB PO SCH (05:56)
[2016-11-09] MEDS: SODIUM CHLORIDE 0.9% 3 ML FLUSH FLUSH SCH ×2 (05:56→17:39)
[2016-11-09] MEDS: DONEPEZIL HCL 5 MG TAB PO SCH (08:50)
[2016-11-09] MEDS: MAGNESIUM OXIDE 400 MG TAB PO SCH ×2 (08:51→22:23)
[2016-11-09] MEDS: PREDNISONE 10 MG TAB PO SCH (08:51)
[2016-11-09] MEDS: FUROSEMIDE 40 MG TAB PO SCH (08:51)
[2016-11-09] MEDS: POTASSIUM CHLORIDE 20 MEQ TAB PO SCH (08:51)
[2016-11-09] MEDS: LISINOPRIL 10 MG TAB PO SCH (08:52)
[2016-11-09] MEDS: QUETIAPINE FUMARATE 25 MG TAB PO SCH (08:52)
[2016-11-09] MEDS: METOPROLOL (TOPROL-XL) 100 MG TAB PO SCH (08:52)
[2016-11-09] MEDS: PAROXETINE 20 MG TAB PO SCH (08:53)
[2016-11-09] MEDS ORDERED: Medication Special Instructions SCH (16:00)
--- NOTE | 2016-11-09 16:05 | GENMEDPROG ---
Subjective Note: Patient has had some episodes of low blood pressure and has been feeling very fatigued today. Awaiting possible senior living facility bed at [facility] Notes Reviewed: Yes Events from last night noted and discussed with Clinical Staff Current Medication List: Reviewed Currently: Reports: Tobacco Use/Hx, Ambulating (Has statin up to the bathroom with PEN RIDER). Denies: Cough, Wheezing, Nausea and Vomiting, Abdominal Pain, Fever/ Chills, Chest Pain DVT Prophylaxis: Yes - Physical Examination Vital Signs and I&O: Last Vital Signs Temp 97.0 F L 11/09/16 13:10 Pulse 82 11/09/16 13:10 Resp 18 11/09/16 15:37 BP 118/68 11/09/16 15:37 Pulse Ox 96 11/09/16 13:10 Oxygen Pulse Oxygen Saturation 96 O2 Device Room Air Oxygen Flow Rate Fraction of Inspired Oxygen ( FIO2) Intake & Output 11/06/16 11/07/16 11/08/16 11/09/16 23:59 23:59 23:59 23:59 Intake Total 0 1158 832 758 Output Total 1100 1600 1950 Balance 0 58 -768 -1192 Patient's weight 42.184 kg 40.965 kg 41.334 kg 41.334 kg General: Alert, Oriented x3 (Initially thought the date was 2015 but was able to correct herself), Cooperative, No acute distress HEENT: Anicteric Sclera, Mucous membr. moist/pink Neck: Full range of motion, Normal inspection Lymphatics: Normal. negative: Adenopathy Respiratory: Diminished (Decreased breath sounds throughout but good excursion) . negative: Accessory Muscle Use Cardiovascular: Regular rate and rhythm, No Gallops,Rubs/Murmurs. negative: LE Edema GI: Normal bowel sounds, Soft, Non tender Extremities/Musculoskeletal: Normal pulses, Other (Upper extremity strength normal. Lower extremities strength 4+ over 5. No cogwheeling noted, no tremor) . negative: Edema Skin: Warm,Dry and Intact Neurological: Normal speech, Cranial nerves 3-12 NL, Other (Automatic Operator strength is much stronger than yesterday. She has a much easier time following commands. In bed she has 4+ over 5 lower extremity strength.) Psych/Mental Status: Appropriate, Normal Affect, Cooperative, Other (She could not give me her address but was able to describe where she lived. She does live with her daughter.) - Assessment (1) Hallucinations Resolved R44.3 - HALLUCINATIONS, UNSPECIFIED Comment/Plan: Patient's symptoms have resolved. She does seem to have some baseline dementia although that would not explain the sudden visual hallucinations. Unclear etiology. (2) Hypokalemia Acute E87.6 - HYPOKALEMIA Comment/Plan: The potassium improved in the emergency department. Will follow labs. (3) Paroxysmal a-fib Chronic I48.0 - PAROXYSMAL ATRIAL FIBRILLATION Comment/Plan: Currently in sinus rhythm by exam. Continue outpatient medications (4) Lower extremity weakness Acute R29.898 - OT SYMPTOMS AND SIGNS INVOLVING THE MUSCULOSKELETAL SYSTEM Qualifiers: Laterality: bilateral Qualified Code(s): R29.898 - Other symptoms and signs involving the musculoskeletal system Comment/Plan: Patient has been seen by physical therapy who have recommended inpatient senior living to improve lower extremity weakness. 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 - Plan Likely discharge in a.m. to [facility] Disposition Plan: Hopefully discharge in a.m. Case Care Discussed with: Patient, Nursing Staff, Occupational Therapy, Physical Therapy, Resource Management, Mechanical Maintenance Foreman Education/Counseling Given To: Patient Education/Counseling Given Regarding: Diagnosis, Treatment, Prognosis Total Time: 35 minutes Critical Care: No Couseling Time (>50% in counseling/coordination): No
[2016-11-09] MEDS: ENOXAPARIN 30 MG/0.3 ML PFS SQ SCH (17:38)
[2016-11-09] MEDS: MIRTAZAPINE 15 MG TAB PO SCH (22:24)
[2016-11-10] MEDS: PANTOPRAZOLE 40 MG TAB PO SCH (05:19)
[2016-11-10] MEDS: SODIUM CHLORIDE 0.9% 3 ML FLUSH FLUSH SCH ×2 (05:20→18:19)
[2016-11-10] MEDS: QUETIAPINE FUMARATE 25 MG TAB PO SCH (08:35)
[2016-11-10] MEDS: FUROSEMIDE 40 MG TAB PO SCH (08:35)
[2016-11-10] MEDS: PAROXETINE 20 MG TAB PO SCH (08:36)
[2016-11-10] MEDS: MAGNESIUM OXIDE 400 MG TAB PO SCH (08:36)
[2016-11-10] MEDS: DONEPEZIL HCL 5 MG TAB PO SCH (08:36)
[2016-11-10] MEDS: POTASSIUM CHLORIDE 20 MEQ TAB PO SCH (08:36)
[2016-11-10] MEDS ORDERED: LISINOPRIL 5 MG TAB PO SCH (09:00)
[2016-11-10] MEDS ORDERED: METOPROLOL TARTRATE 50 MG TAB PO SCH (09:00)
[2016-11-10 10:48] LABS: AUTOMATED BASOPHIL 0.5 % (0-2); AUTOMATED EOSINOPHIL 2.3 % (0-5); AUTOMATED LYMPH 31.8 % (17-44); AUTOMATED MONOCYTE 6.5 % (3-10); AUTOMATED NEUTROPHIL 58.9 % (45-76); MPV 8.5 fL (7.4-10.4)
[2016-11-10 10:59] LABS: BLOOD UREA NITROGEN 41 MG/DL (7-17); CALCIUM 9.4 MG/DL (8.4-10.2); CALCULATED OSMOLALITY 275 MOs/Kg (270-290); CHLORIDE 100 mEq/L (98-107); GLUCOSE 84 MG/DL (70-99); SODIUM LEVEL 138 mEq/L (137-146)
[2016-11-10] MEDS: D5W-1/2NS 1,000 ML IV SCH (14:24)
[2016-11-10 14:47] VITALS: BP 108/69; PULSE 79; TEMP 97.6
--- NOTE | 2016-11-10 16:06 | PCM.DCS92 ---
- Final/Secondary Discharge Diagnosis (1) Hallucinations Resolved R44.3 - HALLUCINATIONS, UNSPECIFIED Present on Admission: Yes Comment: Patient's symptoms have resolved. She does seem to have some baseline dementia although that would not explain the sudden visual hallucinations. Unclear etiology. (2) Hypokalemia Acute E87.6 - HYPOKALEMIA Present on Admission: Yes Comment: The potassium improved in the emergency department. Will follow labs. (3) Paroxysmal a-fib Chronic I48.0 - PAROXYSMAL ATRIAL FIBRILLATION Present on Admission: Yes Comment: Currently in sinus rhythm by exam. Continue outpatient medications (4) Lower extremity weakness Acute R29.898 - OTH SYMPTOMS AND SIGNS INVOLVING THE MUSCULOSKELETAL SYSTEM bilateral R29.898 - Other symptoms and signs involving the musculoskeletal system Comment: Patient has been seen by physical therapy who have recommended inpatient [facility] to improve lower extremity weakness. 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 (6) Hypotension Acute I95.9 - HYPOTENSION, UNSPECIFIED Present on Admission: Yes other hypotension type I95.89 - Other hypotension Plan/Goal/Comment: Patient noted to be hypotensive on admission and had several days of low blood pressures. Her medications were cut in half and her blood pressures improved significantly as did her mentation. It is possible that her change in mental status or encephalopathy was related to low blood pressures and is now improved. Discharge Disposition: Long Term Facility Discharge Condition: Fair Cognitive Discharge Status: Cognitive deficits prevent decision making for safety. Fuctional Discharge Status: Walker Assistance, Fall Risk, Ambulatory Dysfunction Physician Follow up/Referrals: Bryon Reyna MD [Primary Care Provider] - One Week New Prescriptions: POTASSIUM CHLORIDE Tablet [K-DUR 20 mEq Tablet*] 40 meq PO DAILY #30 tab.er.prt Metoprolol Tartrate [Lopressor] 50 mg PO BID #60 tablet Lisinopril [Prinivil] 10 mg PO DAILY #30 tablet Quetiapine Fumarate [Seroquel] 50 mg PO DAILY #30 tablet Lisinopril [Zestril] 5 mg PO DAILY #30 tablet Discharge Home Medication List Furosemide [Lasix] 20 mg PO DAILY PRN 10/16/13 [History Confirmed 11/06/16] Pantoprazole Sodium [Protonix] 40 mg PO DAILY 02/22/15 [History Confirmed ] Aspirin (Enteric Coated) [Halfprin] 81 mg PO DAILY 10/21/16 [History Confirmed 11/06/16] Loperamide HCl [Loperamide] 2 - 4 mg PO Q4H PRN 10/21/16 [History Confirmed 04/17] Magnesium Oxide [Mag-Ox] 400 mg PO BID #120 tablet 10/25/16 [Rx Confirmed ] Albuterol/Ipratropium Neb [Duoneb] 3 ml NEB Q6H PRN 11/05/16 [History Confirmed 11/06/16] Donepezil HCl [Aricept] 5 mg PO DAILY 11/05/16 [History Confirmed 11/06/16] Mirtazapine [Remeron] 15 mg PO HS 11/05/16 [History Confirmed 11/06/16] Prednisone [Deltasone, Orasone] 10 mg PO DAILY 11/05/16 [History Confirmed 11/06] Lisinopril [Prinivil] 10 mg PO DAILY #30 tablet 11/10/16 [Rx] Lisinopril [Zestril] 5 mg PO DAILY #30 tablet 11/10/16 [Rx] Metoprolol Tartrate [Lopressor] 50 mg PO BID #60 tablet 11/10/16 [Rx] POTASSIUM CHLORIDE Tablet [K-DUR 20 mEq Tablet*] 40 meq PO DAILY #30 tab.er.prt 11/10/16 [Rx] Paroxetine [Paxil] 40 mg PO DAILY #30 11/10/16 [Rx Confirmed 11/06/16] Quetiapine Fumarate [Seroquel] 50 mg PO DAILY #30 tablet 11/10/16 [Rx] New Discharge Medications (Rx) Lisinopril [Prinivil] 10 mg PO DAILY #30 tablet 11/10/16 [Rx] Lisinopril [Zestril] 5 mg PO DAILY #30 tablet 11/10/16 [Rx] Metoprolol Tartrate [Lopressor] 50 mg PO BID #60 tablet 11/10/16 [Rx] POTASSIUM CHLORIDE Tablet [K-DUR 20 mEq Tablet*] 40 meq PO DAILY #30 tab.er.prt 11/10/16 [Rx] Paroxetine [Paxil] 40 mg PO DAILY #30 11/10/16 [Rx] Quetiapine Fumarate [Seroquel] 50 mg PO DAILY #30 tablet 11/10/16 [Rx] O2 Device: Room Air Diet at Discharge: Regular Activity: No Restrictions, As Tolerated Call Office For: Worsening Symptoms, Fever over 100.5, Pain Uncontrolled By Meds - DC Summary Notes Hospital Course Note:: Discharge summary on patient named HUSSEIN ANDREWS admitted to [facility] on 11/06/16 by Katharine Mcdaniel MD. Date of discharge is [] . 81-year-old female admitted to our facility with confusion found to have chronic atrial fibrillation but her blood pressures were running slightly low. Um when her blood pressure medications were administered her blood pressure dropped significantly. It was felt that this low blood pressure had caused her disorientation and encephalopathy. Her blood pressure medications were cut in half and she improved significantly. At this point patient has reached maximal benefit of hospitalization. She is stable for discharge to skilled facility. She will need a BMP to recheck her creatinine in 1 week as her creatinine went up to 1.2 on the day of discharge. Total Time: 45 minutes - Physical Exam Vital Signs: Last Vital Signs Temp 97.6 F 11/10/16 14:00 Pulse 79 11/10/16 14:00 Resp 18 11/10/16 14:00 BP 108/69 11/10/16 14:00 Pulse Ox 96 11/10/16 14:00 Oxygen Pulse Oxygen Saturation 96 O2 Device Room Air Oxygen Flow Rate Fraction of Inspired Oxygen ( FIO2) Constitutional: No apparent distress, Confused Oriented to: Person - HEENT Head: Normal Eye: Normal. negative: Conjunctival Injection Oropharynx: Normal Tympanic Membrane: Normal, Obscured (Mild cerumen) ENT EAC: Cerumen Nose: negative: Congestion, Discharge - Respiratory/Cardiovascular Respiratory: Diminished (Decreased breath sounds throughout but good excursion) . negative: Accessory Muscle Use - GI Auscultation: Normal Palpation: Normal. negative: Enlarged liver, Enlarged spleen Tenderness: Non tender Rectal Exam: Deferred - Musculoskeletal Back: Other (Nontender to palpation .skin was not viewed) Extremities: Normal, Pedal Pulse (Trace). negative: Pedal Edema - Integumentary Lymphatics: Normal. negative: Adenopathy - Neurologic Memory Impaired: Unable to Test Motor Function: Normal (Motor 5/5 throughout.Normal tone, Pulses 2+ No cyanosis or edema, FROM) Cranial Nerve: Normal (CN II-XII intact sensation, strength 5/5) Cerebellar: Ataxia (Patient has difficulty with finger to nose bilaterally) Mood Description: Anxious Thought: Rambling Conversation Perception: Visual Hallucinations (Patient is denying these now. But she does have a tendency look to the left and was clearly having visual hallucinations in the emergency department) - Other Exam Other Exam Findings: Abnormal Lab Results 11/10/16 11/10/16 10:36 10:36 RBC 4.04 L RDW 14.9 H BUN 41 H Creatinine 1.20 H Estimated GFR (MDRD) 43 L
[2016-11-10] MEDS: ENOXAPARIN 30 MG/0.3 ML PFS SQ SCH (18:19)
[2016-11-11] MEDS ORDERED: ERGOCALCIFEROL (VITAMIN D2) 50000 UNITS CAP PO SCH (09:00)
== END 2016-11-10 18:57 | DRG 314 ==
LOC: ED 15:59 → EDINP 17:51 → TUOBSINP 19:13 → EDINP 22:07 → OBSVTOIN 11-06 14:39 → MPS3 11-06 15:30
PROVIDERS: ADMIT Family Medicine; ATTEND Hospitalist
DX: I95.89 Other hypotension (principal); G93.49 Other encephalopathy; J44.9 Chronic obstructive pulmonary disease, unspecified; I11.0 Hypertensive heart disease with heart failure; I50.9 Heart failure, unspecified; F03.90 Unspecified dementia, unspecified severity, without behavioral disturbance, psychotic disturbance, mood disturbance, and anxiety; R44.3 Hallucinations, unspecified; E87.6 Hypokalemia; T46.5X5A Adverse effect of other antihypertensive drugs, initial encounter; I10 Essential (primary) hypertension; R94.4 Abnormal results of kidney function studies; I48.0 Paroxysmal atrial fibrillation; I25.10 Atherosclerotic heart disease of native coronary artery without angina pectoris; Z79.82 Long term (current) use of aspirin; Z79.899 Other long term (current) drug therapy; R29.898 Other symptoms and signs involving the musculoskeletal system; I25.2 Old myocardial infarction
CPT/HCPCS: 36415; 70450; 70553; 71010; 80048; 80053; 80307; 81001; 82550; 83735; 84439; 84443; 84481; 84484; 85025; 85610; 85730; 93005; 96372; 97161; 99285; A9577; G0378; G8978; G8979; J1650; J3490

== ENCOUNTER 2016-11-26 05:33 | Inpatient (IN) | payer MEDICARE ==
[2016-11-26] MEDS ORDERED: Albuterol/Ipratropium Neb 3 ML NEB NEB ONE (05:49)
[2016-11-26 05:54] LABS: ALLEN'S TEST PASS; BEb -2.6 (+/- 2); TCO2 24.5 MMOL/L (23-27)
[2016-11-26 05:55] LABS: ABG Draw Site Right Brachial
[2016-11-26 06:15] LABS: AUTOMATED BASOPHIL 0.2 % (0-2); AUTOMATED LYMPH 9.6 % (17-44); AUTOMATED MONOCYTE 6.5 % (3-10); AUTOMATED NEUTROPHIL 83.7 % (45-76); MPV 9.4 fL (7.4-10.4)
--- NOTE | 2016-11-26 06:22 | DIRPT ---
CLINICAL DATA: Acute onset of respiratory difficulty. Nausea. Intermittent generalized abdominal pain. Initial encounter. EXAM: PORTABLE CHEST 1 VIEW COMPARISON: Chest radiograph performed 11/05/2016 FINDINGS: Bibasilar airspace opacification may reflect pulmonary edema or pneumonia. Small bilateral pleural effusions are suspected. Mild vascular congestion is seen. The cardiomediastinal silhouette is mildly enlarged. Hilar prominence appears to reflect prominent vasculature, given a relatively normal appearance on the prior study, and stability from older studies. No acute osseous abnormalities are identified. IMPRESSION: Bibasilar airspace opacification may reflect pulmonary edema or pneumonia. Small bilateral pleural effusions suspected. Mild vascular congestion and mild cardiomegaly. Electronically Signed By: Jay Mckeon M.D. On: 11/26/2016 06:20
[2016-11-26 06:32] LABS: BLOOD UREA NITROGEN 63 MG/DL (7-17); CALC CORRECTED 9.1 MG/DL (8.4-10.2); CALCIUM 8.9 MG/DL (8.4-10.2); CALCULATED OSMOLALITY 294 MOs/Kg (270-290); CHLORIDE 103 mEq/L (98-107); GLUCOSE 148 MG/DL (70-99); SODIUM LEVEL 142 mEq/L (137-146); TOTAL PROTEIN 6.7 G/DL (6.3-8.2)
--- NOTE | 2016-11-26 06:49 | EDPRACDOC ---
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 Home Medications: Home Medications Furosemide [Lasix] 20 mg PO DAILY PRN 10/16/13 Pantoprazole Sodium [Protonix] 40 mg PO DAILY 02/22/15 Aspirin (Enteric Coated) [Halfprin] 81 mg PO DAILY 10/21/16 Loperamide HCl [Loperamide] 2 - 4 mg PO Q4H PRN 10/21/16 Magnesium Oxide [Mag-Ox] 400 mg PO BID #120 tablet 10/25/16 Albuterol/Ipratropium Neb [Duoneb] 3 ml NEB Q6H PRN 11/05/16 Donepezil HCl [Aricept] 5 mg PO DAILY 11/05/16 Mirtazapine [Remeron] 15 mg PO HS 11/05/16 Prednisone [Deltasone, Orasone] 10 mg PO DAILY 11/05/16 Lisinopril [Zestril] 5 mg PO DAILY #30 tablet 11/10/16 Metoprolol Tartrate [Lopressor] 50 mg PO BID #60 tablet 11/10/16 POTASSIUM CHLORIDE Tablet [K-DUR 20 mEq Tablet*] 40 meq PO DAILY #30 tab.er.prt 11/10/16 Paroxetine [Paxil] 40 mg PO DAILY #30 11/10/16 Quetiapine Fumarate [Seroquel] 50 mg PO DAILY #30 tablet 11/10/16 Allergies/Adverse Reactions: Allergies Allergy/AdvReac Type Severity Reaction Status Date / Time diazepam [From Valium] Allergy Unknown/See Verified 11/26/16 05:56 Comments morphine Allergy Unknown Verified 11/26/16 05:56 Penicillins Allergy Rash-Genera Verified 11/26/16 05:56 lized Tetracyclines Allergy Hives* Verified 11/26/16 05:56 [Tetracycline Analogues] IVP DYE Allergy Difficulty Uncoded 11/26/16 05:56 Breathing - History of Present Illness Onset: 2 days Symptoms Occured: Reports: Spontaneous Duration: Reports: Intermittent. Denies: Episodes of Vomiting History of: Reports: UTI Associated Signs & Symptoms: Reports: Nausea, Other (JUST DOES NOT FEEL WELL.). Denies: Vomiting, Diarrhea Oral Intake: Decreased Urinary Output: Decreased Other History: FAMILY STATES PT NOT ACTING HERSELF FOR PAST 3-4 WEEKS, SOME VISUAL AND AUDITORORY HALLUCINATIONS FOR PAST FEW MONTHS. - Treatment Prior to ED Arrival Reported Medications/Treatment HEALTH INFORMATION TECH EMS Treatment BLS IV No ED Past Medical History - History Reviewed Yes Nurses notes reviewed and agree except as marked - Patient Medical History Neurological History: Reports: Dementia, Metabolic encephalopathy (Previously only with infections and after a prolonged ICU stay.). Denies: Cerebrovascular Accident, Seizures Cardiac History: Reports: Atrial Fibrillation, Hypertension, Congestive Heart Failure (Diastolic. ECHO 10/10/13: EF65-70%. Mild-mod MR, TR. Pulm 31mmHg), Heart Attack, Stress Test (11/2014: SMALL LV hyperdynamic, resid 11 mL, EF82%. No rev ischemia), Hypercholesterolemia Respiratory History: Reports: COPD, Pneumonia, Emphysema GI/ History: Reports: Urinary Tract Infection Musculoskeletal History: Reports: Osteoarthritis Psychological History: Reports: Anxiety. Denies: Depression, Substance Use Disorder Systemic History: Denies: Anemia, Diabetes, Hypothyroidism. Comment Only: Cancer (SKIN) Surgical History: Reports: Hysterectomy, Hernia Surgery - Family Medical History Reports: Cancer (Father with cancer, but at 97 yo. Mother: Throat cancer.) , Respiratory Disorders (COPD) - Social Medical History Smoking Status: Former smoker Social History: Denies: Benzodiazipine Use, Substance Use Disorder EDM Review of Systems - Review of Systems ROS Negative Except as Marked: Yes All systems reviewed and were negative except as marked - Physical Exam Constitutional: No apparent distress, Cachectic, Confused Oriented to: Person Last recorded Vital Signs: Last Vital Signs Temp 98.1 F 11/26/16 05:40 Pulse 92 11/26/16 06:04 Resp 18 11/26/16 06:04 BP 135/58 L 11/26/16 06:04 Pulse Ox 97 11/26/16 06:04 Oxygen Pulse Oxygen Saturation 97 O2 Device Room Air Oxygen Flow Rate 3 Fraction of Inspired Oxygen ( FIO2) - HEENT Head: Normal Oropharynx: Normal Neck: Normal. negative: Edema - Respiratory/Cardiovascular Respiratory: Diminished, Wheezes. negative: Tachypnea Cardiovascular: Normal - GI Auscultation: Normal Palpation: Normal Tenderness: Non tender. negative: Guarding, Rebound, Rigidity Lopez's Sign: Negative - Musculoskeletal Back: Normal Extremities: Normal - Integumentary Skin: Normal - Neurologic Memory Impaired: Normal Motor Function: Normal Cranial Nerve: Normal Mood Description: Normal Thought: Coherent Perception: Normal, Auditory Hallucinations (PER FAMILY) - Results 11/26/16 06:07 11/26/16 06:07 WBC 10.4 xk/uL (3.8-10.8) 11/26/16 06:07 RBC 3.61 xM/uL (4.20-5.40) L 11/26/16 06:07 Hgb 11.3 g/dL (12.0-16.0) L 11/26/16 06:07 Hct 34.4 % (36-47) L 11/26/16 06:07 MCV 95 fL (81-99) 11/26/16 06:07 MCH 31.2 pg (27-32) 11/26/16 06:07 MCHC 32.8 g/dl (33-36) L 11/26/16 06:07 RDW 15.8 % (11.5-14.5) H 11/26/16 06:07 Plt Count 202 xk/uL (130-400) 11/26/16 06:07 MPV 9.4 fL (7.4-10.4) 11/26/16 06:07 Neut % (Auto) 83.7 % (45-76) H 11/26/16 06:07 Lymph % (Auto) 9.6 % (17-44) L 11/26/16 06:07 [place] % (Auto) 6.5 % (3-10) 11/26/16 06:07 Eos % (Auto) 0.0 % (0-5) 11/26/16 06:07 Baso % (Auto) 0.2 % (0-2) 11/26/16 06:07 Absolute Neuts (auto) 8.63 xk/uL (1.7-8.2) H 11/26/16 06:07 Absolute Lymphs (auto) 0.94 xk/uL (0.65-4.75) 11/26/16 06:07 Puncture Site Right brachial 11/26/16 05:50 pH 7.340 pH UNITS (7.35-7.45) L 11/26/16 05:50 pCO2 43.0 mmHg (35-45) 11/26/16 05:50 pO2 50.0 mmHg (80-100) L 11/26/16 05:50 HCO3 23.2 MMOL/L (22-26) 11/26/16 05:50 Total CO2 24.5 MMOL/L (23-27) 11/26/16 05:50 Base Excess -2.6 (+/- 2) L 11/26/16 05:50 FiO2 % 21 11/26/16 05:50 Specimen Drawn By Baras 11/26/16 05:50 Sodium 142 mEq/L (137-146) 11/26/16 06:07 Potassium 5.6 mEq/L (3.5-5.1) H 11/26/16 06:07 Chloride 103 mEq/L (98-107) 11/26/16 06:07 Carbon Dioxide 25 mMOL/L (22-33) 11/26/16 06:07 Anion Gap 20 mEq/L (8-16) H 11/26/16 06:07 BUN 63 MG/DL (7-17) H 11/26/16 06:07 Creatinine 1.50 MG/DL (0.52-1.04) H 11/26/16 06:07 Estimated GFR (MDRD) 33 mL/min (>=60) L 11/26/16 06:07 Glucose 148 MG/DL (70-99) H 11/26/16 06:07 Calculated Osmolality 294 MOs/Kg (270-290) H 11/26/16 06:07 Calcium 8.9 MG/DL (8.4-10.2) 11/26/16 06:07 Corrected Calcium 9.1 MG/DL (8.4-10.2) 11/26/16 06:07 Total Bilirubin 1.2 MG/DL (0.2-1.3) 11/26/16 06:07 AST 113 IU/L (14-36) H 11/26/16 06:07 ALT 129 IU/L (9-52) H 11/26/16 06:07 Alkaline Phosphatase 119 IU/L (55-165) 11/26/16 06:07 Total Protein 6.7 G/DL (6.3-8.2) 11/26/16 06:07 Albumin 3.8 G/DL (3.5-5.0) 11/26/16 06:07 Lab Results 01/26/17 01/26/17 01/26/17 06:07 06:07 05:50 WBC 10.4 RBC 3.61 L Hgb 11.3 L Hct 34.4 L MCV 95 MCH 31.2 MCHC 32.8 L RDW 15.8 H Plt Count 202 MPV 9.4 Neut % (Auto) 83.7 H Lymph % (Auto) 9.6 L [place] % (Auto) 6.5 Eos % (Auto) 0.0 Baso % (Auto) 0.2 Absolute Neuts (auto) 8.63 H Absolute Lymphs (auto) 0.94 Puncture Site Right brachial pH 7.340 L pCO2 43.0 pO2 50.0 L HCO3 23.2 Total CO2 24.5 Base Excess -2.6 L FiO2 % 21 Specimen Drawn By Baras Sodium 142 Potassium 5.6 H Chloride 103 Carbon Dioxide 25 Anion Gap 20 H BUN 63 H Creatinine 1.50 H Estimated GFR (MDRD) 33 L Glucose 148 H Calculated Osmolality 294 H Calcium 8.9 Corrected Calcium 9.1 Total Bilirubin 1.2 AST 113 H ALT 129 H Alkaline Phosphatase 119 Total Protein 6.7 Albumin 3.8 - EKG EKG #1 EKG Time: :17 -: Yes EKG interpreted by me Rate: bpm: 105 [place]: Normal Rhythm: Afib Block: None Hypertrophy: None ST: Nonsp - Additional Information NEW RENAL INSUF: PROB RELATED TO KEZIA. EVIDENCE OF NEW PULM EDEMA AND CHF. GIVEN RECENT STEADY DECLINE IN HEALTH, IN HAVE URGED PT AND DAUGHTER TO ADDRESS LIVING WILL AND END OF LIFE ISSUES. SHE CURRENTLY IS NO CPR, YES TO INTUBATION. - Departure Condition: Stable Final Diagnosis: New onset of congestive heart failure, Renal insufficiency, mild, Acute respiratory failure with hypoxia, Failure to thrive Instructions: Acute Abdominal Pain (ED), *Heart Failure (Activity, Diet, Worsening Symptoms, Weight Monitoring)(ED) Education/Counseling Given To: Patient, Family Member Education/Counseling Given Regarding: Diagnosis, Treatment, Prognosis Referrals: Bryon Reyna MD [Primary Care Provider] - One Week Decision to Admit Time: 07:29 Decision to admit date: 11/26/16 Decision to admit: from ED - Physician Consulted Hospitalist Time Called: 07:29 Provider Called: Jessica Brice Time Goal Umpire Returned Call: 07:29
[2016-11-26 06:50] LABS: LEUKOCYTES/URINE NEG (NEGATIVE); NITRITE/URINE NEG (NEGATIVE); RBC/URINE 0-2 (0-5); URINE OCCULT BLOOD NEG (NEG/TRACE)
[2016-11-26 06:50] LABS: PT-INR 1.6
[2016-11-26 06:51] LABS: PARTIAL THROMB. TIME 21.8 SEC (22-35)
[2016-11-26] MEDS ORDERED: BENZONATATE 100 MG PERLES PO PRN (07:29)
[2016-11-26] MEDS ORDERED: NITROGLYCERINE 0.4 MG TAB SL PRN (07:29)
[2016-11-26] MEDS ORDERED: SIMETHICONE 80 MG TAB PO PRN (07:29)
[2016-11-26] MEDS ORDERED: ONDANSETRON HCL 4 MG/2 ML VIAL IV PRN (07:29)
[2016-11-26] MEDS ORDERED: METOCLOPRAMIDE 10 MG/2 ML VIAL IV PRN (07:29)
[2016-11-26] MEDS ORDERED: MORPHINE 2 MG/ML INJECTION IV PRN (07:29)
[2016-11-26] MEDS ORDERED: DOCUSATE-SENNA CONCENTRATE TAB PO PRN (07:29)
[2016-11-26] MEDS ORDERED: ACETAMINOPHEN 650 MG SUPP PR PRN (07:29)
[2016-11-26] MEDS ORDERED: ACETAMINOPHEN 325 MG/TAB TABLET PO PRN (07:29)
[2016-11-26] MEDS ORDERED: SODIUM CHLORIDE 0.9% 3 ML FLUSH FLUSH PRN (07:29)
[2016-11-26] MEDS ORDERED: Pharmacy Order Set Alert SCH (08:00)
[2016-11-26] MEDS ORDERED: SODIUM CHLORIDE 0.9% 3 ML FLUSH FLUSH SCH (08:00)
--- NOTE | 2016-11-26 11:07 | HISTPHYS ---
- Chief Complaint short of breath - History of Present Illness Marizol Montoya is an 81 year old woman who presents with a 3 day history of worsening shortness of breath. She has had some heaviness and tightness in her chest, but denies pain. She has had to sleep sitting up. She has had a dry cough, non-productive. She feels like her shortness of breath is worse when she lies down. She does have a prior history of diastolic congestive heart failure , as well as COPD. - Medical History Cardiac History: Reports: Hypertension, Congestive Heart Failure (Diastolic. ECHO 10/10/13: EF65-70%. Mild-mod MR, TR. Pulm 31mmHg), Heart Attack Respiratory History: Reports: COPD, Pneumonia, Emphysema GI/ History: Reports: Urinary Tract Infection Systemic History: Denies: Anemia, Hypothyroidism Neurological History: Reports: Dementia. Denies: Cerebrovascular Accident, Seizures Psychological History: Reports: Anxiety. Denies: Depression - Surgical History Reports: Hernia Surgery - Medictions/Allergies Allergies diazepam [From Valium] Allergy (Verified 11/26/16 10:19) Unknown/See Comments "MAKES ME MEAN" morphine Allergy (Verified 11/26/16 10:19) Unknown HALLUCINATIONS; "ACTS CRAZY" Penicillins Allergy (Verified 11/26/16 10:19) Rash-Generalized Tetracyclines [Tetracycline Analogues] Allergy (Verified 11/26/16 10:19) Hives* IVP DYE Allergy (Uncoded 11/26/16 10:19) Difficulty Breathing Current Medication List: Reviewed Home Medications Aspirin (Enteric Coated) [Halfprin] 81 mg PO 1600 10/21/16 Loperamide HCl [Loperamide] 2 - 4 mg PO Q4H PRN 10/21/16 Magnesium Oxide [Mag-Ox] 400 mg PO BID #120 tablet 10/25/16 Albuterol/Ipratropium Neb [Duoneb] 3 ml NEB Q6H PRN 11/05/16 Donepezil HCl [Aricept] 5 mg PO 199911/05/16 Mirtazapine [Remeron] 15 mg PO 199911/05/16 Ergocalciferol (Vitamin D2) [Vitamin D] 50,000 units PO WE 11/26/16 Guaifenesin [Mucinex] 1,200 mg PO BID 11/26/16 Lisinopril [Prinivil] 20 mg PO 0800 11/26/16 Melatonin/Pyridoxine HCl (B6) [Melatonin 1 mg Tablet] 1 each PO HS PRN 11/26/16 Metoprolol Succinate (XL) [Toprol Xl] 100 mg PO QAM 11/26/16 Nitroglycerin [Nitrostat] 0.4 mg SL Q5MX3 PRN 11/26/16 Omeprazole 20 mg PO 0630 11/26/16 Paroxetine [Paxil] 40 mg PO 0800 11/26/16 Potassium Chloride [Klor-Con Sprinkle] 10 meq PO 1600 11/26/16 Prednisone [Deltasone, Orasone] 6 mg PO .DAILY X 7 DAYS 11/26/16 - Family History Reports: Cancer (Father with cancer, but at 97 yo. Mother: Throat cancer.) - Social History Travel Outside of [place] in the Last 3 Months?: No Lives: Alone Smoking Status: Former smoker Social History: Denies: Alcohol Use - Review of Systems Constitutional: Fatigue, Weakness. negative: Chills, Fever Eyes: No Symptoms Reported Ears: Hearing Loss Nose: No Symptoms Reported Mouth: Denture, Dry Mouth, Poor Dentition Throat/Neck: Snoring Respiratory: Cough, Shortness of Breath, Wheezing, Dyspnea Cardiovascular: Chest Pain, Orthopnea, Palpitations, PND. negative: Edema Gastrointestinal: Nausea, Constipation, Heartburn. negative: Vomiting, Abdominal Pain Genitourinary: Frequency, Postmenopause Neurological: Gait Difficulty, Headache, Weakness, Memory Changes Musculoskeletal:: Osteoarthritis, Stiffness, Weakness, Joint Pain Integumentary: No Symptoms Reported Allergic/Immunologic: No Symptoms Reported Hematologic: Anemia Endocrine: Polyuria, Osteopenia Psychiatric: Anxiety, Depression - Physical Exam Vital Signs: Initial Vitals Temperature 98.1 F 11/26/16 05:40 Pulse Rate 101 11/26/16 05:40 Respiratory Rate 18 11/26/16 05:40 Blood Pressure 140/99 11/26/16 05:40 Pulse Oxygen Saturation 88 L 11/26/16 05:40 Constitutional: Alert, Distress (respiratory), Well nourished, Other (frail elderly female). negative: Well appearing Oriented to: Time, Person, Place - HEENT Head: Normal Eye: Normal Oropharynx: Normal. negative: Drooling, Exudate, Red Tympanic Membrane: Dull Nose: negative: Bleeding, Congestion, Discharge Respiratory: Accessory Muscle Use, Rales, Tachypnea, Wheezes (occasional) Cardiovascular: Tachycardia, Irregular, Systolic murmur, Gallop/S3 - GI Auscultation: Normal Palpation: Normal (soft, nondistended, no mass, no fluid wave) Tenderness: Non tender Lopez's Sign: Negative Rectal Exam: Deferred - Exam Deferred: Yes - Musculoskeletal Back: Normal, No Palpable Step-off. negative: CVA Tenderness Extremities: Edema (trace to 1+), Pedal Pulse (normal), Radial Pulse (normal). negative: Calf Tenderness, Clubbing, Cyanosis Spine: normal alignment, normal inspection - Integumentary Skin: Warm, Dry Lymphatics: Normal - Neurologic Memory Impaired: Normal Motor Function: Normal Cranial Nerve: Normal Cerebellar: Normal Mood Description: Normal Thought: Coherent Perception: Normal - Focused CV Perfusion Exam Vital Signs: Last Vital Signs Temp 97.6 F 11/26/16 10:20 Pulse 97 11/26/16 10:20 Resp 18 11/26/16 10:20 BP 146/81 11/26/16 10:20 Pulse Ox 97 11/26/16 10:20 - Lab Results Selected Entries 11/26/16 05:40 Temperature 98.1 F Pulse Rate 101 Respiratory 18 Rate Blood Pressure 112 Mean Blood Pressure 140/99 Pulse Oxygen 88 L Saturation O2 Device Room Air Laboratory Tests 11/26/16 11/26/16 11/26/16 05:50 06:07 06:07 WBC 10.4 Hgb 11.3 L Hct 34.4 L Plt Count 202 Neut % (Auto) 83.7 H Lymph % (Auto) 9.6 L Burnett % (Auto) 6.5 PT INR APTT pH 7.340 L pCO2 43.0 pO2 50.0 L HCO3 23.2 Total CO2 24.5 Base Excess -2.6 L FiO2 % 21 Sodium 142 Potassium 5.6 H Chloride 103 Carbon Dioxide 25 Anion Gap 20 H BUN 63 H Creatinine 1.50 H Estimated GFR (MDRD) 33 L Glucose 148 H Lactic Acid Corrected Calcium 9.1 Magnesium Total Bilirubin 1.2 AST 113 H ALT 129 H Alkaline Phosphatase 119 Troponin I 0.04 Kam-A-Ujmitgneygn Pept 62220 H Total Protein 6.7 Albumin 3.8 Urine Color Urine Clarity Urine pH Ur Specific [place] Urine Protein Urine Glucose (UA) Urine Ketones Urine Nitrite Urine RBC Urine WBC Hyaline Casts 11/26/16 11/26/16 11/26/16 06:07 06:15 08:34 WBC Hgb Hct Plt Count Neut % (Auto) Lymph % (Auto) Burnett % (Auto) PT 16.1 H INR 1.6 APTT 21.8 L pH pCO2 pO2 HCO3 Total CO2 Base Excess FiO2 % Sodium Potassium Chloride Carbon Dioxide Anion Gap BUN Creatinine Estimated GFR (MDRD) Glucose Lactic Acid Corrected Calcium Magnesium 2.50 H Total Bilirubin AST ALT Alkaline Phosphatase Troponin I Ffg-J-Lvjcaxdbgig Pept Total Protein Albumin Urine Color Yellow Urine Clarity Clear Urine pH 5.0 Ur Specific [place] 1.020 Urine Protein 2+ H Urine Glucose (UA) Neg Urine Ketones Neg Urine Nitrite Neg Urine RBC 0-2 Urine WBC 2-5 Hyaline Casts 2-5 H 11/26/16 11/26/16 08:34 11:56 WBC Hgb Hct Plt Count Neut % (Auto) Lymph % (Auto) Burnett % (Auto) PT INR APTT pH pCO2 pO2 HCO3 Total CO2 Base Excess FiO2 % Sodium Potassium Chloride Carbon Dioxide Anion Gap BUN Creatinine Estimated GFR (MDRD) Glucose Lactic Acid 2.1 2.1 Corrected Calcium Magnesium Total Bilirubin AST ALT Alkaline Phosphatase Troponin I Mnl-V-Bxoltotvfai Pept Total Protein Albumin Urine Color Urine Clarity Urine pH Ur Specific [place] Urine Protein Urine Glucose (UA) Urine Ketones Urine Nitrite Urine RBC Urine WBC Hyaline Casts - Diagnostic Findings CXR:IMPRESSION: Bibasilar airspace opacification may reflect pulmonary edema or pneumonia. Small bilateral pleural effusions suspected. Mild vascular congestion and mild cardiomegaly. Electronically Signed By: Jay Mckeon M.D. On: 11/26/2016 06:20 EKG: atrial fib 105 bpm, nonspec ST changes - Assessment (1) Acute respiratory failure with hypoxia J96.01 - ACUTE RESPIRATORY FAILURE WITH HYPOXIA Acute Present on Admission: Yes Admit to PCU, provide supplemental oxygen, begin fluid restriction, diuresis. Monitor I&O. Maintain O2 sat >92% (2) Diastolic CHF I50.30 - UNSPECIFIED DIASTOLIC (CONGESTIVE) HEART FAILURE Acute Present on Admission: Yes Qualifiers: Congestive heart failure chronicity: acute on chronic Qualified Code(s): I50.33 - Acute on chronic diastolic (congestive) heart failure Mild exacerbation, will give initial IV furosemide, monitor weight and fluid balance, restrict fluids, place on 3 g sodium diet. Check echocardiogram. (3) Atrial fibrillation with RVR I48.91 - UNSPECIFIED ATRIAL FIBRILLATION Acute Present on Admission: Yes Begin metoprolol for rate control, keep K more than 4, magnesium more than 2. (4) Acute kidney injury N17.9 - ACUTE KIDNEY FAILURE, UNSPECIFIED Acute Present on Admission: Yes Avoid nephrotoxic medications, monitor renal function closely. (5) Elevated LFTs R94.5 - ABNORMAL RESULTS OF LIVER FUNCTION STUDIES Acute Present on Admission: Yes Will follow LFT's as clinical course progresses, consider evaluation of gallbladder, medication evaluation if remains elevated. (6) Acute exacerbation of chronic obstructive airways disease J44.1 - CHRONIC OBSTRUCTIVE PULMONARY DISEASE W (ACUTE) EXACERBATION Acute Present on Admission: Yes DuoNebs and supplemental oxygen. Patient was started on prednisone by PCP will continue this and pulmonary toilet. CXR shows questionable bronchopneumonia ( vs pulmonary edema from CHF). (7) Bronchopneumonia J18.0 - BRONCHOPNEUMONIA, UNSPECIFIED ORGANISM Resolved Present on Admission: Yes CXR shows questionable bronchopneumonia (vs pulmonary edema from CHF). Will obtain blood culture and sputum specimen for cuture if possible, and begin IV antibiotics. If cultures are negative, consider discontinuing antibiotics after 72 hours. Case Care Discussed with: Patient, Nursing Staff Total Time: 65 min Critical Care: No Couseling Time (>50% in counseling/coordination): Yes Code: 82032
[2016-11-26] MEDS: FUROSEMIDE 40 MG/4 ML VIAL IV SCH ×2 (11:41→20:05)
[2016-11-26] MEDS: NICOTINE 21 MG PATCH TOP SCH (11:41)
[2016-11-26] MEDS: ASPIRIN (CHEWABLE) 81 MG TAB PO SCH (11:41)
[2016-11-26] MEDS: POTASSIUM CHLORIDE 20 MEQ TAB PO SCH (11:42)
[2016-11-26] MEDS: LISINOPRIL 2.5 MG TAB PO SCH (11:42)
[2016-11-26] MEDS: METOPROLOL TARTRATE 50 MG TAB PO SCH ×2 (11:42→20:05)
--- NOTE | 2016-11-26 16:13 | CAPUECHO ---
INDICATION: ANDREWS FAILURE--DETERMINE EJECTION FRACTION HEIGHT: 154.9 cm (5 ft 1.0 in) WEIGHT: 40.8 kg (90.0 lbs) BP: 169/99 BSA: 1.337600 m MEASUREMENTS 2D RVIDd: 2.9 cm LVOT Diam: 1.9 cm LA Diam: 3.6 cm EF Biplane: 54.44 % LAESV MOD A4C: 45.7 ml LAESV MOD A2C: 73.7 ml LAESV Index (A-L): 49.99 ml/m M-MODE IVSd: 0.9 cm LVIDd: 3.7 cm LVPWd: 0.6 cm LVIDs: 2.7 cm EF(Teich): 53 % Ao Diam: 2.5 cm LA Diam: 5.0 cm Ao Diam: 3.5 cm AV Cusp: 1.7 cm DOPPLER MV E Jesus Alberto: 1.02 m/s MV A Jesus Alberto: 0.01 m/s MV PHT: 22.53 ms MVA By PHT: 9.77 cm LVOT Vmax: 0.68 m/s AV Vmax: 0.99 m/s ROSARIO Vmax, Pt: 2.01 cm TR Vmax: 2.37 m/s TR maxP mmHg RVSP: 35.62 mmHg FINDINGS ------- Procedure:2D images, m-mode, color and spectral Doppler were obtained and reviewed. ECG rhythm:Atrial fibrillation. Study quality:This was a technically adequate study to somewhat TDS. Previous exam 10/2013. Left Ventricle:The left ventricular size is normal. Left ventricular wall thickness is normal. T here is normal global left ventricular contractility. Overall left ventricular systolic function i s low-normal with, an EF between 50 - 55 %. Right Ventricle:The right ventricle is moderately enlarged. Left Atrium:The left atrium is markedly dilated. Right Atrium:The right atrium is moderately enlarged. Aortic Valve:The aortic valve is trileaflet and appears structurally normal. There is mild aortic valve sclerosis. There is mild aortic regurgitation. The aortic pressure half-time by doppler is 481ms. Mitral Valve:Normal appearing mitral valve. Mild mitral annular calcification present. Mild-to- moderate mitral regurgitation is present. Cannot exclude mitral valve prolapse. Tricuspid Valve:The tricuspid valve appears structurally normal. Moderate tricuspid regurgitation present. The right ventricular systolic pressure, as measured by Doppler, is 36mmHg. Pulmonic Valve:The pulmonic valve is normal. Trace/mild (physiologic) pulmonic regurgitation. Aorta:The aortic root, ascending aorta and aortic arch appear normal. IVC:The inferior vena cava is dilated with no significant inspiratory collapse which is consistent e stimated right atrial pressure of >20 mmHg. Pericardium:There is a trivial pericardial effusion present. CONCLUSIONS 1. Overall left ventricular systolic function is low-normal with, an EF between 50 - 55 %. 2. The right ventricle is moderately enlarged. 3. The left atrium is markedly dilated. 4. The right atrium is moderately enlarged. 5. There is mild aortic regurgitation. 6. Zaby-[id number]-bumnwgwp mitral regurgitation is present. 7. The right ventricular systolic pressure, as measured by Doppler, is 36mmHg. Electronically Signed By: Ramón Lui MD -- Electronically Signed On: 16:12:26
[2016-11-26] MEDS: ENOXAPARIN 30 MG/0.3 ML PFS SQ SCH (17:48)
[2016-11-26] MEDS: SODIUM CHLORIDE 0.9% 3 ML FLUSH FLUSH SCH (17:49)
[2016-11-26] MEDS: TEMAZEPAM 15 MG CAP PO PRN (20:09)
[2016-11-27] MEDS: SODIUM CHLORIDE 0.9% 3 ML FLUSH FLUSH SCH ×2 (04:56→16:40)
[2016-11-27 07:00] LABS: BLOOD UREA NITROGEN 65 MG/DL (7-17); CALC CORRECTED 9.2 MG/DL (8.4-10.2); CALCIUM 8.4 MG/DL (8.4-10.2); CALCULATED OSMOLALITY 293 MOs/Kg (270-290); CHLORIDE 99 mEq/L (98-107); GLUCOSE 81 MG/DL (70-99); LDL (calc.) 79.6 MG/DL (<100); SODIUM LEVEL 143 mEq/L (137-146); VLDL (calc.) 22.4 MG/DL (5-40)
--- NOTE | 2016-11-27 07:27 | DIRPT ---
CLINICAL DATA: Follow-up of respiratory failure EXAM: PORTABLE CHEST 1 VIEW COMPARISON: Portable chest x-ray of November 26, 2016 FINDINGS: The lungs are reasonably well inflated. A pleural effusion on the right is more apparent today. The left hemidiaphragm remains obscured in the retrocardiac region remains dense. The cardiac silhouette is top-normal in size. The central pulmonary vascularity is prominent and there is mild cephalization of the vascular pattern. IMPRESSION: Increased conspicuity of pleural fluid on the right may reflect changes in the patient's positioning. There is persistent bibasilar atelectasis or pneumonia. Stable mild cardiac enlargement and central pulmonary vascular congestion. Electronically Signed By: Hamzah Hawkins M.D. On: 11/27/2016 07:24
[2016-11-27 07:36] LABS: hTSH 7.83 uIU/mL (0.5-4.67)
[2016-11-27] MEDS: FUROSEMIDE 40 MG/4 ML VIAL IV SCH ×2 (08:08→20:27)
[2016-11-27] MEDS: ASPIRIN (CHEWABLE) 81 MG TAB PO SCH (08:08)
[2016-11-27] MEDS: METOPROLOL TARTRATE 50 MG TAB PO SCH ×2 (08:09→20:27)
[2016-11-27] MEDS: NICOTINE 21 MG PATCH TOP SCH (08:09)
[2016-11-27] MEDS: LISINOPRIL 2.5 MG TAB PO SCH (08:09)
[2016-11-27] MEDS ORDERED: METOCLOPRAMIDE 10 MG/2 ML VIAL IV PRN (08:59)
[2016-11-27] MEDS ORDERED: Vaccine Screening Complete SCH (10:00)
[2016-11-27] MEDS: POTASSIUM CHLORIDE 20 MEQ TAB PO SCH (12:02)
[2016-11-27] MEDS: ENOXAPARIN 30 MG/0.3 ML PFS SQ SCH (16:43)
--- NOTE | 2016-11-27 17:29 | GENMEDPROG ---
Chief Complaint: Feels a little better. Less congested and short of breath. Denies chest pain. Hopes to get out of bed some today Notes Reviewed: Yes Events from last night noted and discussed with Clinical Staff Current Medication List: Reviewed Currently: Reports: Cough, Wheezing, SERRATO, SOB - Physical Examination Vital Signs and I&O: Last Vital Signs Temp 97.8 F 11/27/16 16:00 Pulse 100 11/27/16 16:00 Resp 16 11/27/16 16:00 BP 108/61 11/27/16 16:00 Pulse Ox 90 L 11/27/16 16:00 Oxygen Pulse Oxygen Saturation 90 O2 Device Nasal Cannula Oxygen Flow Rate 2 Fraction of Inspired Oxygen ( 50 FIO2) Intake & Output 11/24/16 11/25/16 11/26/16 11/27/16 23:59 23:59 23:59 23:59 Intake Total 60 520 Output Total 260 1200 Balance -200 -680 Patient's weight 44.622 kg 42.864 kg General: Alert, Oriented x3, Cooperative, No acute distress. negative: Well appearing (Chronically ill-appearing) HEENT: Normal, PERRLA, EOMI, Anicteric Sclera Neck: Non-tender, Full range of motion, Normal Trachea alignment, Normal inspection. negative: JVD Lymphatics: Normal. negative: Adenopathy Respiratory: Diminished, Wheezes. negative: Tachypnea Cardiovascular: Regular rate and rhythm, No Gallops,Rubs/Murmurs GI: Normal bowel sounds, Soft, Non tender, No hepatospenomegaly Extremities/Musculoskeletal: Normal pulses. negative: Tenderness, Swelling, Edema Skin: Warm,Dry and Intact, No rashes, No breakdown Neurological: Normal speech, Strength at 5/5 X4 ext, Normal tone, Cranial nerves 3-12 NL Psych/Mental Status: Appropriate, Normal Affect, Cooperative, Agitated Lab/DI/Studies Reviewed: Laboratory Results - last 24 hr 11/27/16 04:40 Sodium 143 Potassium 3.7 D Chloride 99 Carbon Dioxide 33 Anion Gap 15 BUN 65 H Creatinine 1.30 H Estimated GFR (MDRD) 39 L Glucose 81 Calculated Osmolality 293 H Calcium 8.4 Corrected Calcium 9.2 Magnesium 2.10 Total Bilirubin 0.9 AST 88 H ALT 113 H Alkaline Phosphatase 104 Fzg-B-Wibvblhoxtt Pept 87049 H Total Protein 6.0 L Albumin 3.2 L Triglycerides 112 Cholesterol 132 LDL Cholesterol, Calc 79.6 VLDL Cholesterol, Calc 22.4 HDL Cholesterol 30.0 L Cholesterol/HDL Ratio 4.4 TSH 7.83 H - Assessment (1) Acute respiratory failure with hypoxia Acute J96.01 - ACUTE RESPIRATORY FAILURE WITH HYPOXIA Comment/Plan: PO2 of 50 at admission. Chest x-ray with bibasilar infiltrates. Continue antibiotics and pulmonary toilet. Wean oxygen as able. Increase activity as tolerated (2) COPD (chronic obstructive pulmonary disease) Acute J44.9 - CHRONIC OBSTRUCTIVE PULMONARY DISEASE, UNSPECIFIED Qualifiers: COPD type: unspecified COPD Chronic bronchitis type: C Emphysema type: E Qualified Code(s): J44.9 - Chronic obstructive pulmonary disease, unspecified Comment/Plan: Nebs, oxygen and pulmonary toilet. Activity as able. (3) Failure to thrive Acute [id number] - Qualifiers: Failure to thrive age range: in adult Qualified Code(s): R62.7 - Adult failure to thrive Comment/Plan: Encourage activity and physical therapy. (4) Dementia Acute F03.90 - UNSPECIFIED DEMENTIA WITHOUT BEHAVIORAL DISTURBANCE Comment/ Plan: Currently appears alert, oriented and interactive. Monitor. (5) Bronchopneumonia Resolved J18.0 - BRONCHOPNEUMONIA, UNSPECIFIED ORGANISM Comment/Plan: Continue antibiotics and follow. (6) Hyperkalemia Acute E87.5 - HYPERKALEMIA Comment/Plan: Better today. Continue to monitor (7) Elevated LFTs Acute R94.5 - ABNORMAL RESULTS OF LIVER FUNCTION STUDIES Comment/Plan: Some better today. Continue to monitor. Asymptomatic (8) Renal insufficiency, mild Acute N28.9 - DISORDER OF KIDNEY AND URETER, UNSPECIFIED Comment/Plan: Creatinine improved from 1.5 down to 1.3. Continue to monitor Case Care Discussed with: Patient, Nursing Staff, Physical Therapy, Resource Management, Respiratory Therapy, [employer] Assistant
[2016-11-27] MEDS: TEMAZEPAM 15 MG CAP PO PRN (20:32)
[2016-11-28 04:38] LABS: MPV 9.5 fL (7.4-10.4)
[2016-11-28 04:55] LABS: CALC CORRECTED 9.3 MG/DL (8.4-10.2); CALCIUM 8.3 MG/DL (8.4-10.2); TOTAL PROTEIN 5.8 G/DL (6.3-8.2)
[2016-11-28] MEDS: SODIUM CHLORIDE 0.9% 3 ML FLUSH FLUSH SCH ×2 (04:55→16:58)
[2016-11-28] MEDS: NICOTINE 21 MG PATCH TOP SCH (08:19)
[2016-11-28] MEDS: FUROSEMIDE 40 MG/4 ML VIAL IV SCH (08:20)
[2016-11-28] MEDS: ASPIRIN (CHEWABLE) 81 MG TAB PO SCH (08:20)
[2016-11-28] MEDS: METOPROLOL TARTRATE 50 MG TAB PO SCH ×2 (08:20→20:48)
[2016-11-28] MEDS: LISINOPRIL 2.5 MG TAB PO SCH (08:20)
--- NOTE | 2016-11-28 09:03 | GENMEDPROG ---
Chief Complaint: Feeling some better. Denies cough or congestion. Notes Reviewed: Yes Events from last night noted and discussed with Clinical Staff Current Medication List: Reviewed Currently: Reports: SERRATO, SOB. Denies: Cough, Nausea and Vomiting, Abdominal Pain, Chest Pain - Physical Examination Vital Signs and I&O: Last Vital Signs Temp 98.4 F 11/28/16 08:03 Pulse 82 11/28/16 08:49 Resp 18 11/28/16 08:03 BP 111/74 11/28/16 08:03 Pulse Ox 92 11/28/16 08:03 Oxygen Pulse Oxygen Saturation 92 O2 Device Nasal Cannula Oxygen Flow Rate 2 Fraction of Inspired Oxygen ( 30 FIO2) Intake & Output 11/25/16 11/26/16 11/27/16 11/28/16 23:59 23:59 23:59 23:59 Intake Total 60 670 Output Total 260 1600 800 Balance -200 -200 -800 Patient's weight 44.622 kg 42.864 kg 41.594 kg General: Alert, Oriented x3, Cooperative, No acute distress. negative: Well appearing (Chronically ill-appearing) HEENT: Normal, PERRLA, EOMI, Anicteric Sclera Neck: Non-tender, Full range of motion, Normal Trachea alignment, Normal inspection. negative: JVD Lymphatics: Normal. negative: Adenopathy Respiratory: Diminished, Wheezes. negative: Tachypnea Cardiovascular: Regular rate and rhythm, No Gallops,Rubs/Murmurs GI: Normal bowel sounds, Soft, Non tender, No hepatospenomegaly Extremities/Musculoskeletal: Normal pulses. negative: Tenderness, Swelling, Edema Skin: Warm,Dry and Intact, No rashes, No breakdown Neurological: Normal speech, Strength at 5/5 X4 ext, Normal tone, Cranial nerves 3-12 NL Psych/Mental Status: Appropriate, Normal Affect, Cooperative, Agitated Lab/DI/Studies Reviewed: Laboratory Results - last 24 hr 11/28/16 11/28/16 03:30 03:30 WBC 7.5 RBC 3.78 L Hgb 11.7 L Hct 35.1 L MCV 93 MCH 31.0 MCHC 33.5 RDW 16.1 H Plt Count 167 MPV 9.5 Sodium 138 Potassium 3.8 Chloride 92 L Carbon Dioxide 37 H Anion Gap 13 BUN 50 H Creatinine 1.00 Estimated GFR (MDRD) 53 L Glucose 84 Calculated Osmolality 278 Calcium 8.3 L Corrected Calcium 9.3 Total Bilirubin 1.0 AST 95 H ALT 122 H Alkaline Phosphatase 107 Total Protein 5.8 L Albumin 3.0 L - Assessment (1) Acute respiratory failure with hypoxia Acute J96.01 - ACUTE RESPIRATORY FAILURE WITH HYPOXIA Comment/Plan: PO2 of 50 at admission. Some better today. Minimal distress. Still mild congestion at the bases. Increase activity and wean oxygen. (2) COPD (chronic obstructive pulmonary disease) Acute J44.9 - CHRONIC OBSTRUCTIVE PULMONARY DISEASE, UNSPECIFIED Qualifiers: COPD type: unspecified COPD Chronic bronchitis type: C Emphysema type: E Qualified Code(s): J44.9 - Chronic obstructive pulmonary disease, unspecified Comment/Plan: Nebs, oxygen and pulmonary toilet. Activity as able. (3) Failure to thrive Acute [id number] - Qualifiers: Failure to thrive age range: in adult Qualified Code(s): R62.7 - Adult failure to thrive Comment/Plan: Encourage activity and physical therapy. (4) Dementia Acute F03.90 - UNSPECIFIED DEMENTIA WITHOUT BEHAVIORAL DISTURBANCE Comment/ Plan: Currently appears alert, oriented and interactive. Monitor. (5) Bronchopneumonia Resolved J18.0 - BRONCHOPNEUMONIA, UNSPECIFIED ORGANISM Comment/Plan: Continue antibiotics and follow. (6) Hyperkalemia Acute E87.5 - HYPERKALEMIA Comment/Plan: Better today. Continue to monitor (7) Elevated LFTs Acute R94.5 - ABNORMAL RESULTS OF LIVER FUNCTION STUDIES Comment/Plan: LFTs remain elevated. No significant improvement. Will check right upper quadrant ultrasound. Will review medications (8) Renal insufficiency, mild Acute N28.9 - DISORDER OF KIDNEY AND URETER, UNSPECIFIED Comment/Plan: Creatinine normal at 1.0 Case Care Discussed with: Patient, Nursing Staff, Resource Management
[2016-11-28] MEDS ORDERED: NS 500 ML IV ONE (11:18)
[2016-11-28] MEDS: POTASSIUM CHLORIDE 20 MEQ TAB PO SCH (11:20)
--- NOTE | 2016-11-28 14:38 | DIRPT ---
CLINICAL DATA: Persistently elevated LFTs. EXAM: US ABDOMEN LIMITED - RIGHT UPPER QUADRANT COMPARISON: CT scan 09/19/2016. FINDINGS: Gallbladder: Gallbladder could not be visualized despite the patient being 5 hours postprandial. Personal Service Representative reports no sonographic Lopez sign. Common bile duct: Diameter: 3 mm. Liver: Heterogeneous with coarsened echotexture. IMPRESSION: No evidence of biliary dilatation. Nonvisualization of the gallbladder. Electronically Signed By: Kirby Little M.D. On: 11/28/2016 14:36
[2016-11-28] MEDS: ENOXAPARIN 30 MG/0.3 ML PFS SQ SCH (16:58)
[2016-11-29 04:09] LABS: AUTOMATED BASOPHIL 0.4 % (0-2); AUTOMATED EOSINOPHIL 1.3 % (0-5); AUTOMATED MONOCYTE 8.8 % (3-10); AUTOMATED NEUTROPHIL 65.5 % (45-76); MPV 9.1 fL (7.4-10.4)
[2016-11-29 04:14] LABS: BLOOD UREA NITROGEN 45 MG/DL (7-17); CALCIUM 8.3 MG/DL (8.4-10.2); CALCULATED OSMOLALITY 280 MOs/Kg (270-290); CHLORIDE 92 mEq/L (98-107); GLUCOSE 94 MG/DL (70-99); SODIUM LEVEL 139 mEq/L (137-146)
[2016-11-29] MEDS: SODIUM CHLORIDE 0.9% 3 ML FLUSH FLUSH SCH ×2 (04:53→17:15)
--- NOTE | 2016-11-29 07:15 | DIRPT ---
CLINICAL DATA: Pneumonia, respiratory difficulty EXAM: PORTABLE CHEST 1 VIEW COMPARISON: 11/27/2016 FINDINGS: Cardiomegaly. Bilateral airspace disease again noted with bilateral effusions. Probable underlying COPD. Slight improvement in lung volumes, otherwise no change. IMPRESSION: Cardiomegaly with bilateral airspace disease and layering effusions, with slight improvement in lung volumes. Electronically Signed By: Gurmeet Wolff M.D. On: 11/29/2016 07:12
[2016-11-29] MEDS: ASPIRIN (CHEWABLE) 81 MG TAB PO SCH (07:46)
[2016-11-29] MEDS: METOPROLOL TARTRATE 50 MG TAB PO SCH (07:46)
[2016-11-29] MEDS: NICOTINE 21 MG PATCH TOP SCH (07:46)
[2016-11-29] MEDS: LISINOPRIL 2.5 MG TAB PO SCH (07:47)
[2016-11-29] MEDS: FUROSEMIDE 40 MG/4 ML VIAL IV SCH (07:47)
[2016-11-29] MEDS: POTASSIUM CHLORIDE 20 MEQ TAB PO SCH (07:47)
--- NOTE | 2016-11-29 10:08 | GENMEDPROG ---
Chief Complaint: Oxygenation is much improved. Chest x-ray shows improved aeration. Overall says she is feeling better. Notes Reviewed: Yes Events from last night noted and discussed with Clinical Staff Current Medication List: Reviewed Currently: Reports: SERRATO, SOB. Denies: Cough, Nausea and Vomiting, Abdominal Pain, Chest Pain - Physical Examination Vital Signs and I&O: Last Vital Signs Temp 98.2 F 11/29/16 08:20 Pulse 101 11/29/16 08:20 Resp 16 11/29/16 08:20 BP 118/74 11/29/16 08:20 Pulse Ox 87 L 11/29/16 08:20 Oxygen Pulse Oxygen Saturation 87 O2 Device Nasal Cannula Oxygen Flow Rate 2 Fraction of Inspired Oxygen ( 30 FIO2) Intake & Output 11/26/16 11/27/16 11/28/16 11/29/16 23:59 23:59 23:59 23:59 Intake Total 60 670 860 240 Output Total 260 1600 1950 900 Balance -200 -930 -1090 -660 Patient's weight 44.622 kg 42.864 kg 41.594 kg 41.844 kg General: Alert, Oriented x3, Cooperative, No acute distress. negative: Well appearing (Chronically ill-appearing) HEENT: Normal, PERRLA, EOMI, Anicteric Sclera Neck: Non-tender, Full range of motion, Normal Trachea alignment, Normal inspection. negative: JVD Lymphatics: Normal. negative: Adenopathy Respiratory: Diminished, Wheezes. negative: Tachypnea Cardiovascular: Regular rate and rhythm, No Gallops,Rubs/Murmurs GI: Normal bowel sounds, Soft, Non tender, No hepatospenomegaly Extremities/Musculoskeletal: Normal pulses. negative: Tenderness, Swelling, Edema Skin: Warm,Dry and Intact, No rashes, No breakdown Neurological: Normal speech, Strength at 5/5 X4 ext, Normal tone, Cranial nerves 3-12 NL Psych/Mental Status: Appropriate, Normal Affect, Cooperative, Agitated Lab/DI/Studies Reviewed: Laboratory Results - last 24 hr 11/29/16 11/29/16 03:15 03:15 WBC 7.8 RBC 3.81 L Hgb 11.7 L Hct 35.4 L MCV 93 MCH 30.6 MCHC 32.9 L RDW 16.0 H Plt Count 171 MPV 9.1 Neut % (Auto) 65.5 Lymph % (Auto) 24.0 [place] % (Auto) 8.8 Eos % (Auto) 1.3 Baso % (Auto) 0.4 Absolute Neuts (auto) 5.07 Absolute Lymphs (auto) 1.87 Sodium 139 Potassium 4.5 Chloride 92 L Carbon Dioxide 42 H Anion Gap 10 BUN 45 H Creatinine 1.10 H Estimated GFR (MDRD) 48 L Glucose 94 Calculated Osmolality 280 Calcium 8.3 L - Assessment (1) Acute respiratory failure with hypoxia Acute J96.01 - ACUTE RESPIRATORY FAILURE WITH HYPOXIA Comment/Plan: Steadily better. Improved aeration on x-ray. Increase activity and mobility. (2) COPD (chronic obstructive pulmonary disease) Acute J44.9 - CHRONIC OBSTRUCTIVE PULMONARY DISEASE, UNSPECIFIED Qualifiers: COPD type: unspecified COPD Chronic bronchitis type: C Emphysema type: E Qualified Code(s): J44.9 - Chronic obstructive pulmonary disease, unspecified Comment/Plan: Nebs, oxygen and pulmonary toilet. Activity as able. (3) Failure to thrive Acute [id number] - Qualifiers: Failure to thrive age range: in adult Qualified Code(s): R62.7 - Adult failure to thrive Comment/Plan: Encourage activity and physical therapy. (4) Dementia Acute F03.90 - UNSPECIFIED DEMENTIA WITHOUT BEHAVIORAL DISTURBANCE Comment/ Plan: Currently appears alert, oriented and interactive. Monitor. (5) Bronchopneumonia Resolved J18.0 - BRONCHOPNEUMONIA, UNSPECIFIED ORGANISM Comment/Plan: Continue antibiotics and follow. (6) Hyperkalemia Acute E87.5 - HYPERKALEMIA Comment/Plan: Better today. Continue to monitor (7) Elevated LFTs Acute R94.5 - ABNORMAL RESULTS OF LIVER FUNCTION STUDIES Comment/Plan: LFTs remain elevated. No significant improvement. Will check right upper quadrant ultrasound. Will review medications (8) Renal insufficiency, mild Acute N28.9 - DISORDER OF KIDNEY AND URETER, UNSPECIFIED Comment/Plan: Creatinine normal at 1.0 Case Care Discussed with: Patient, Nursing Staff, Resource Management, Respiratory Therapy
[2016-11-29] MEDS ORDERED: POTASSIUM CHLORIDE 10 MEQ PO SCH (16:00)
[2016-11-29] MEDS: POTASSIUM CHLORIDE 10 MEQ TABLET PO SCH (17:14)
[2016-11-29] MEDS: ENOXAPARIN 30 MG/0.3 ML PFS SQ SCH (17:15)
[2016-11-29] MEDS: MIRTAZAPINE 15 MG TAB PO SCH (19:43)
[2016-11-29] MEDS: DONEPEZIL HCL 5 MG TAB PO SCH (19:43)
[2016-11-30 03:50] VITALS: BMI 17.4
[2016-11-30] MEDS: PANTOPRAZOLE 40 MG TAB PO SCH (04:39)
[2016-11-30] MEDS: SODIUM CHLORIDE 0.9% 3 ML FLUSH FLUSH SCH ×2 (04:39→16:13)
[2016-11-30] MEDS ORDERED: Non-Formulary Medication ITEM (Omeprazole [Omeprazole] 20 MG) PO SCH (06:30)
[2016-11-30] MEDS: LISINOPRIL 20 MG TAB PO SCH (08:43)
[2016-11-30] MEDS: PAROXETINE 20 MG TAB PO SCH (08:43)
[2016-11-30] MEDS: FUROSEMIDE 40 MG/4 ML VIAL IV SCH (08:44)
[2016-11-30] MEDS: METOPROLOL (TOPROL-XL) 100 MG TAB PO SCH (11:32)
[2016-11-30] MEDS: ENOXAPARIN 30 MG/0.3 ML PFS SQ SCH (16:12)
[2016-11-30] MEDS: POTASSIUM CHLORIDE 10 MEQ TABLET PO SCH (16:12)
--- NOTE | 2016-11-30 16:54 | GENMEDPROG ---
Chief Complaint: Slowly better. Has diuresed well the last several days. Denies pain or shortness of breath at present Notes Reviewed: Yes Events from last night noted and discussed with Clinical Staff Current Medication List: Reviewed Currently: Reports: SERRATO, SOB. Denies: Cough, Nausea and Vomiting, Abdominal Pain, Chest Pain - Physical Examination Vital Signs and I&O: Last Vital Signs Temp 97.8 F 11/30/16 11:16 Pulse 101 11/30/16 11:36 Resp 18 11/30/16 11:16 BP 88/46 L 11/30/16 12:11 Pulse Ox 96 11/30/16 11:16 Oxygen Pulse Oxygen Saturation 96 O2 Device Nasal Cannula Oxygen Flow Rate 2 Fraction of Inspired Oxygen ( 30 FIO2) Intake & Output 11/27/16 11/28/16 11/29/16 11/30/16 23:59 23:59 23:59 23:59 Intake Total 670 860 720 120 Output Total 1600 1950 1575 1400 Balance -930 -1090 -855 -1280 Patient's weight 42.864 kg 41.594 kg 41.844 kg 43.137 kg General: Alert, Oriented x3, Cooperative, No acute distress. negative: Well appearing (Chronically ill-appearing) HEENT: Normal, PERRLA, EOMI, Anicteric Sclera Neck: Non-tender, Full range of motion, Normal Trachea alignment, Normal inspection. negative: JVD Lymphatics: Normal. negative: Adenopathy Respiratory: Diminished, Wheezes. negative: Tachypnea Cardiovascular: Regular rate and rhythm, No Gallops,Rubs/Murmurs GI: Normal bowel sounds, Soft, Non tender, No hepatospenomegaly Extremities/Musculoskeletal: Normal pulses. negative: Tenderness, Swelling, Edema Skin: Warm,Dry and Intact, No rashes, No breakdown Neurological: Normal speech, Strength at 5/5 X4 ext, Normal tone, Cranial nerves 3-12 NL Psych/Mental Status: Appropriate, Normal Affect, Cooperative, Agitated - Assessment (1) Acute respiratory failure with hypoxia Acute J96.01 - ACUTE RESPIRATORY FAILURE WITH HYPOXIA Comment/Plan: Steadily better and clinically appears comfortable. She still however remains hypoxic and may need oxygen at discharge. Encourage activity and spirometry. Repeat chest x-ray in a.m. (2) COPD (chronic obstructive pulmonary disease) Acute J44.9 - CHRONIC OBSTRUCTIVE PULMONARY DISEASE, UNSPECIFIED Qualifiers: COPD type: unspecified COPD Qualified Code(s): J44.9 - Chronic obstructive pulmonary disease, unspecified Comment/Plan: Nebs, oxygen and pulmonary toilet. Activity as able. (3) Failure to thrive Acute [id number] - Qualifiers: Failure to thrive age range: in adult Qualified Code(s): R62.7 - Adult failure to thrive Comment/Plan: Encourage activity and physical therapy. (4) Dementia Acute F03.90 - UNSPECIFIED DEMENTIA WITHOUT BEHAVIORAL DISTURBANCE Comment/ Plan: Currently appears alert, oriented and interactive. Monitor. (5) Bronchopneumonia Resolved J18.0 - BRONCHOPNEUMONIA, UNSPECIFIED ORGANISM Comment/Plan: Continue antibiotics and follow. (6) Hyperkalemia Acute E87.5 - HYPERKALEMIA Comment/Plan: Better today. Continue to monitor (7) Elevated LFTs Acute R94.5 - ABNORMAL RESULTS OF LIVER FUNCTION STUDIES Comment/Plan: Right upper quadrant ultrasound is negative (8) Renal insufficiency, mild Acute N28.9 - DISORDER OF KIDNEY AND URETER, UNSPECIFIED Comment/Plan: Creatinine normal at 1.0 Case Care Discussed with: Patient, Nursing Staff, Resource Management, Respiratory Therapy
[2016-11-30] MEDS: DONEPEZIL HCL 5 MG TAB PO SCH (19:40)
[2016-11-30] MEDS: MIRTAZAPINE 15 MG TAB PO SCH (19:40)
[2016-11-30] MEDS: TEMAZEPAM 15 MG CAP PO PRN (19:40)
[2016-11-30] MEDS ORDERED: CHAPSTICK LIP BALM ONE (22:07)
[2016-12-01 04:47] LABS: ALLEN'S TEST PASS; BEb 10.1 (+/- 2); TCO2 38.2 MMOL/L (23-27)
[2016-12-01 04:48] LABS: ABG Draw Site Left Radial
[2016-12-01 05:23] LABS: AUTOMATED BASOPHIL 0.4 % (0-2); AUTOMATED EOSINOPHIL 1.8 % (0-5); AUTOMATED LYMPH 27.7 % (17-44); AUTOMATED MONOCYTE 8.8 % (3-10); AUTOMATED NEUTROPHIL 61.3 % (45-76); MPV 8.5 fL (7.4-10.4)
[2016-12-01 05:31] LABS: BLOOD UREA NITROGEN 38 MG/DL (7-17); CALC CORRECTED 9.8 MG/DL (8.4-10.2); CALCIUM 8.6 MG/DL (8.4-10.2); CALCULATED OSMOLALITY 268 MOs/Kg (270-290); CHLORIDE 94 mEq/L (98-107); GLUCOSE 84 MG/DL (70-99); SODIUM LEVEL 135 mEq/L (137-146); TOTAL PROTEIN 5.6 G/DL (6.3-8.2)
[2016-12-01] MEDS: SODIUM CHLORIDE 0.9% 3 ML FLUSH FLUSH SCH ×2 (06:18→17:21)
[2016-12-01] MEDS: PANTOPRAZOLE 40 MG TAB PO SCH (06:25)
--- NOTE | 2016-12-01 07:34 | DIRPT ---
CLINICAL DATA: CHF. Pleural effusion EXAM: PORTABLE CHEST 1 VIEW COMPARISON: 11/29/2016 FINDINGS: Improved aeration right lower lobe. Mild improvement in left lower lobe consolidation. Negative for heart failure or edema. No significant pleural effusion. IMPRESSION: Improvement in bibasilar consolidation likely atelectasis. Electronically Signed By: Aj Torres M.D. On: 12/01/2016 07:32
[2016-12-01] MEDS: LISINOPRIL 20 MG TAB PO SCH (09:16)
[2016-12-01] MEDS: METOPROLOL (TOPROL-XL) 100 MG TAB PO SCH (09:30)
[2016-12-01] MEDS: FUROSEMIDE 40 MG/4 ML VIAL IV SCH (09:32)
[2016-12-01] MEDS: PAROXETINE 20 MG TAB PO SCH (09:33)
--- NOTE | 2016-12-01 16:02 | GENMEDPROG ---
Chief Complaint: Feels little better. Less short of breath and congested. Still weak Notes Reviewed: Yes: Events from last night noted and discussed with Clinical Staff Current Medication List: Reviewed Currently: Reports: SERRATO, SOB. Denies: Cough, Nausea and Vomiting, Abdominal Pain, Chest Pain - Physical Examination Vital Signs and I&O: Last Vital Signs Temp 98.1 F 12/01/16 12:00 Pulse 107 12/01/16 13:30 Resp 20 12/01/16 12:00 BP 111/53 L 12/01/16 12:00 Pulse Ox 96 12/01/16 12:00 Oxygen Pulse Oxygen Saturation 96 O2 Device Nasal Cannula Oxygen Flow Rate 2 Fraction of Inspired Oxygen ( 30 FIO2) Intake & Output 11/28/16 11/29/16 11/30/16 12/01/16 23:59 23:59 23:59 23:59 Intake Total 860 720 480 240 Output Total 8133 1575 1600 500 Balance -1090 -855 -1120 -260 Patient's weight 41.594 kg 41.844 kg 43.137 kg 42.808 kg General: Alert, Cooperative, Well appearing, Well nourished. negative: Oriented x3 HEENT: Normal, PERRLA, EOMI, Anicteric Sclera Neck: Non-tender, Full range of motion, Normal Trachea alignment, Normal inspection Lymphatics: Normal Respiratory: Accessory Muscle Use, Rales, Tachypnea, Wheezes (occasional) Cardiovascular: Regular rate and rhythm, No Gallops,Rubs/Murmurs GI: Soft, Non tender, No hepatospenomegaly, No masses Extremities/Musculoskeletal: Normal pulses. negative: Tenderness, Swelling, Edema Skin: Warm,Dry and Intact, No rashes, No breakdown Neurological: Normal speech, Strength at 5/5 X4 ext, Normal tone, Cranial nerves 3-12 NL Psych/Mental Status: Appropriate, Normal Affect, Cooperative Lab/DI/Studies Reviewed: Laboratory Results - last 24 hr 12/01/16 12/01/16 12/01/16 04:40 05:10 05:10 WBC 6.7 RBC 3.75 L Hgb 11.4 L Hct 34.5 L MCV 92 MCH 30.5 MCHC 33.2 RDW 15.6 H Plt Count 177 MPV 8.5 Neut % (Auto) 61.3 Lymph % (Auto) 27.7 [place] % (Auto) 8.8 Eos % (Auto) 1.8 Baso % (Auto) 0.4 Absolute Neuts (auto) 4.09 Absolute Lymphs (auto) 1.81 Puncture Site Left radial pH 7.430 pCO2 55.0 H pO2 79.0 L HCO3 36.5 H Total CO2 38.2 H Base Excess 10.1 H FiO2 % .30 Mode BiPAP 12/6 Specimen Drawn By Baras Sodium 135 L Potassium 3.9 Chloride 94 L Carbon Dioxide 38 H Anion Gap 7 L BUN 38 H Creatinine 1.00 Estimated GFR (MDRD) 53 L Glucose 84 Calculated Osmolality 268 L Calcium 8.6 Corrected Calcium 9.8 Magnesium Total Bilirubin 0.6 AST 26 ALT 60 H Alkaline Phosphatase 104 Total Protein 5.6 L Albumin 2.8 L 12/01/16 05:10 WBC RBC Hgb Hct MCV MCH MCHC RDW Plt Count MPV Neut % (Auto) Lymph % (Auto) [place] % (Auto) Eos % (Auto) Baso % (Auto) Absolute Neuts (auto) Absolute Lymphs (auto) Puncture Site pH pCO2 pO2 HCO3 Total CO2 Base Excess FiO2 % Mode BiPAP Specimen Drawn By Sodium Potassium Chloride Carbon Dioxide Anion Gap BUN Creatinine Estimated GFR (MDRD) Glucose Calculated Osmolality Calcium Corrected Calcium Magnesium 2.00 Total Bilirubin AST ALT Alkaline Phosphatase Total Protein Albumin - Assessment (1) Acute respiratory failure with hypoxia Acute J96.01 - ACUTE RESPIRATORY FAILURE WITH HYPOXIA Comment/Plan: Slowly improving. Repeat chest x-ray showing improved aeration. Increase activity and wean oxygen. Hopefully home in 1-2 days. (2) COPD (chronic obstructive pulmonary disease) Acute J44.9 - CHRONIC OBSTRUCTIVE PULMONARY DISEASE, UNSPECIFIED Qualifiers: COPD type: unspecified COPD Qualified Code(s): J44.9 - Chronic obstructive pulmonary disease, unspecified Comment/Plan: Nebs, oxygen and pulmonary toilet. Activity as able. (3) Failure to thrive Acute [id number] - Qualifiers: Failure to thrive age range: in adult Qualified Code(s): R62.7 - Adult failure to thrive Comment/Plan: Encourage activity and physical therapy. (4) Dementia Acute F03.90 - UNSPECIFIED DEMENTIA WITHOUT BEHAVIORAL DISTURBANCE Comment/ Plan: Currently appears alert, oriented and interactive. Monitor. (5) Bronchopneumonia Resolved J18.0 - BRONCHOPNEUMONIA, UNSPECIFIED ORGANISM Comment/Plan: Continue antibiotics and pulmonary toilet. Increase activity and monitor (6) Hyperkalemia Acute E87.5 - HYPERKALEMIA Comment/Plan: Better today. Continue to monitor (7) Elevated LFTs Acute R94.5 - ABNORMAL RESULTS OF LIVER FUNCTION STUDIES Comment/Plan: LFTs have improved. Right upper quadrant ultrasound is negative. (8) Renal insufficiency, mild Acute N28.9 - DISORDER OF KIDNEY AND URETER, UNSPECIFIED Comment/Plan: Creatinine normal at 1.0 Case Care Discussed with: Patient, Nursing Staff, Physical Therapy, Resource Management, Respiratory Therapy, Product Safety Expert
[2016-12-01] MEDS: POTASSIUM CHLORIDE 10 MEQ TABLET PO SCH (17:20)
[2016-12-01] MEDS: ENOXAPARIN 30 MG/0.3 ML PFS SQ SCH (17:21)
[2016-12-01] MEDS: MIRTAZAPINE 15 MG TAB PO SCH (20:08)
[2016-12-01] MEDS: DONEPEZIL HCL 5 MG TAB PO SCH (20:08)
[2016-12-02] MEDS: SODIUM CHLORIDE 0.9% 3 ML FLUSH FLUSH SCH ×2 (06:18→17:03)
[2016-12-02] MEDS: PANTOPRAZOLE 40 MG TAB PO SCH (06:18)
[2016-12-02] MEDS: PAROXETINE 20 MG TAB PO SCH (08:32)
[2016-12-02] MEDS: LISINOPRIL 20 MG TAB PO SCH (08:32)
[2016-12-02] MEDS: METOPROLOL (TOPROL-XL) 25 MG TAB PO SCH (08:33)
[2016-12-02] MEDS: FUROSEMIDE 40 MG/4 ML VIAL IV SCH (08:40)
[2016-12-02] MEDS ORDERED: NITROGLYCERINE 0.4 MG TAB SL PRN (08:58)
--- NOTE | 2016-12-02 09:01 | GENMEDPROG ---
Chief Complaint: LESS SOB LESS COUGH Notes Reviewed: Yes: Events from last night noted and discussed with Clinical Staff Currently: Reports: SERRATO, SOB. Denies: Cough, Nausea and Vomiting, Abdominal Pain, Chest Pain DVT Prophylaxis: Yes - Physical Examination Vital Signs and I&O: Last Vital Signs Temp 98.1 F 12/02/16 08:38 Pulse 107 12/02/16 08:38 Resp 16 12/02/16 08:38 BP 123/63 12/02/16 08:38 Pulse Ox 92 12/02/16 08:38 Oxygen Pulse Oxygen Saturation 92 O2 Device Room Air Oxygen Flow Rate 2 Fraction of Inspired Oxygen ( 30 FIO2) Intake & Output 11/29/16 11/30/16 12/01/16 12/02/16 23:59 23:59 23:59 23:59 Intake Total 720 480 240 Output Total 1575 1600 750 200 Balance -855 -1120 -510 -200 Patient's weight 41.844 kg 43.137 kg 42.808 kg 43.148 kg General: Alert, Cooperative, Well appearing, Well nourished. negative: Oriented x3 HEENT: Normal, PERRLA, EOMI, Anicteric Sclera Neck: Non-tender, Full range of motion, Normal Trachea alignment, Normal inspection Lymphatics: Normal Respiratory: Accessory Muscle Use, Rales, Tachypnea, Wheezes (occasional) Cardiovascular: Normal S1, No Gallops,Rubs/Murmurs, Normal S2, Irregular, Other (TACHY). negative: Regular rate and rhythm GI: Soft, Non tender, No hepatospenomegaly, No masses Extremities/Musculoskeletal: Normal pulses. negative: Tenderness, Swelling, Edema Skin: Warm,Dry and Intact, No rashes, No breakdown Neurological: Normal speech, Strength at 5/5 X4 ext, Normal tone, Cranial nerves 3-12 NL Psych/Mental Status: Appropriate, Normal Affect, Cooperative Lab/DI/Studies Reviewed: 12/01/16 05:10 12/01/16 05:10 - Assessment (1) Atrial fibrillation with RVR Acute I48.91 - UNSPECIFIED ATRIAL FIBRILLATION Comment/Plan: Begin metoprolol for rate control, keep K more than 4, magnesium more than 2. (2) COPD (chronic obstructive pulmonary disease) Acute J44.9 - CHRONIC OBSTRUCTIVE PULMONARY DISEASE, UNSPECIFIED Qualifiers: COPD type: unspecified COPD Qualified Code(s): J44.9 - Chronic obstructive pulmonary disease, unspecified Comment/Plan: Nebs, oxygen and pulmonary toilet. Activity as able. (3) Dementia Acute F03.90 - UNSPECIFIED DEMENTIA WITHOUT BEHAVIORAL DISTURBANCE Comment/ Plan: Currently appears alert, oriented and interactive. Monitor. (4) Diastolic CHF Acute I50.30 - UNSPECIFIED DIASTOLIC (CONGESTIVE) HEART FAILURE Qualifiers: Congestive heart failure chronicity: acute on chronic Qualified Code(s): I50.33 - Acute on chronic diastolic (congestive) heart failure Comment/Plan: Mild exacerbation, will give initial IV furosemide, monitor weight and fluid balance, restrict fluids, place on 3 g sodium diet. Check echocardiogram. (5) GERD (gastroesophageal reflux disease) Chronic K21.9 - GASTRO-ESOPHAGEAL REFLUX DISEASE WITHOUT ESOPHAGITIS Qualifiers: Esophagitis presence: without esophagitis Qualified Code(s): K21.9 - Gastro -esophageal reflux disease without esophagitis Comment/Plan: Continue PPI (6) Bronchopneumonia Resolved J18.0 - BRONCHOPNEUMONIA, UNSPECIFIED ORGANISM Comment/Plan: Continue antibiotics and pulmonary toilet. Increase activity and monitor Case Care Discussed with: Patient, Nursing Staff, Resource Management Education/Counseling Given To: Patient Education/Counseling Given Regarding: Diagnosis Total Time: 38 MIN Critical Care: No Code: 34849 (12+)
[2016-12-02] MEDS: CEFTRIAXONE 1 GM in D5W 100 ML IV SCH (11:05)
[2016-12-02 11:20] LABS: BLOOD UREA NITROGEN 32 MG/DL (7-17); CALCULATED OSMOLALITY 273 MOs/Kg (270-290); CHLORIDE 95 mEq/L (98-107); GLUCOSE 143 mg/dL (70-99); SODIUM LEVEL 137 mEq/L (137-146)
[2016-12-02] MEDS ORDERED: AZITHROMYCIN 500 MG in D5W 250 ML IV SCH (12:00)
[2016-12-02] MEDS ORDERED: ERGOCALCIFEROL (VITAMIN D2) 50000 UNITS CAP PO SCH (12:00)
[2016-12-02] MEDS: MAGNESIUM OXIDE 400 MG TAB PO SCH ×2 (12:16→17:03)
[2016-12-02] MEDS: PROBIOTIC BLEND TAB PO SCH ×2 (12:16→17:02)
[2016-12-02] MEDS: POTASSIUM CHLORIDE 10 MEQ TABLET PO SCH (17:02)
[2016-12-02] MEDS: ENOXAPARIN 30 MG/0.3 ML PFS SQ SCH (17:03)
[2016-12-02] MEDS: TEMAZEPAM 15 MG CAP PO PRN (20:16)
[2016-12-02] MEDS: DONEPEZIL HCL 5 MG TAB PO SCH (20:16)
[2016-12-02] MEDS: MIRTAZAPINE 15 MG TAB PO SCH (20:16)
[2016-12-03 05:28] LABS: MPV 8.9 fL (7.4-10.4)
[2016-12-03 05:39] LABS: BLOOD UREA NITROGEN 30 MG/DL (7-17); CALCIUM 8.7 MG/DL (8.4-10.2); CALCULATED OSMOLALITY 269 MOs/Kg (270-290); CHLORIDE 96 mEq/L (98-107); GLUCOSE 87 mg/dL (70-99); SODIUM LEVEL 137 mEq/L (137-146)
[2016-12-03] MEDS: PANTOPRAZOLE 40 MG TAB PO SCH (06:21)
[2016-12-03] MEDS: SODIUM CHLORIDE 0.9% 3 ML FLUSH FLUSH SCH (06:21)
--- NOTE | 2016-12-03 08:28 | PCM.DCS92 ---
- Final/Secondary Discharge Diagnosis (1) Atrial fibrillation with RVR Acute I48.91 - UNSPECIFIED ATRIAL FIBRILLATION Present on Admission: Yes Comment: Begin metoprolol for rate control, keep K more than 4, magnesium more than 2. (2) COPD (chronic obstructive pulmonary disease) Acute J44.9 - CHRONIC OBSTRUCTIVE PULMONARY DISEASE, UNSPECIFIED Present on Admission: Yes unspecified COPD J44.9 - Chronic obstructive pulmonary disease, unspecified Comment: Nebs, oxygen and pulmonary toilet. Activity as able. (3) Dementia Acute F03.90 - UNSPECIFIED DEMENTIA WITHOUT BEHAVIORAL DISTURBANCE Present on Admission: Yes Comment: Currently appears alert, oriented and interactive. Monitor. (4) Diastolic CHF Acute I50.30 - UNSPECIFIED DIASTOLIC (CONGESTIVE) HEART FAILURE Present on Admission: Yes acute on chronic I50.33 - Acute on chronic diastolic (congestive) heart failure Comment: Mild exacerbation, will give initial IV furosemide, monitor weight and fluid balance, restrict fluids, place on 3 g sodium diet. Check echocardiogram. (5) GERD (gastroesophageal reflux disease) Chronic K21.9 - GASTRO-ESOPHAGEAL REFLUX DISEASE WITHOUT ESOPHAGITIS Present on Admission: Yes without esophagitis K21.9 - Gastro-esophageal reflux disease without esophagitis Comment: Continue PPI (6) Bronchopneumonia Resolved J18.0 - BRONCHOPNEUMONIA, UNSPECIFIED ORGANISM Present on Admission: Yes Comment: Continue antibiotics and pulmonary toilet. Increase activity and monitor Discharge Disposition: Home Discharge Condition: Improved Cognitive Discharge Status: Unimpaired Fuctional Discharge Status: Independent Physician Follow up/Referrals: Bryon Reyna MD [Primary Care Provider] - 12/10/16 9:30 am Home Medications / New Prescriptions: New Azithromycin [Zithromax Tri-Heath] 500 mg PO DAILY #3 tablet Cephalexin Monohydrate [Keflex] 500 mg PO Q8H #15 cap Probiotic Blend [Francesca Q] 1 tab PO BIDLS #20 tablet Continue Loperamide HCl [Loperamide] 2 - 4 mg PO Q4H PRN PRN Reason: Diarrhea Aspirin (Enteric Coated) [Halfprin] 81 mg PO 1600 Magnesium Oxide [Mag-Ox] 400 mg PO BID #120 tablet Donepezil HCl [Aricept] 5 mg PO 2000 Mirtazapine [Remeron] 15 mg PO 2000 Albuterol/Ipratropium Neb [Duoneb] 3 ml NEB Q6H PRN PRN Reason: COPD Paroxetine [Paxil] 40 mg PO 0800 Potassium Chloride [Klor-Con Sprinkle] 10 meq PO 1600 Ergocalciferol (Vitamin D2) [Vitamin D2 (ergocalciferol)] 50,000 units PO WE Omeprazole 20 mg PO 0630 Metoprolol Succinate (XL) [Toprol Xl] 100 mg PO QAM Lisinopril [Prinivil] 20 mg PO 0800 Nitroglycerin [Nitrostat] 0.4 mg SL Q5MX3 PRN PRN Reason: Chest Pain Or Discomfort Prednisone [Deltasone, Orasone] 6 mg PO .DAILY X 7 DAYS #1 box No Action Guaifenesin [Mucinex] 1,200 mg PO BID Melatonin/Pyridoxine HCl (B6) [Melatonin 1 mg Tablet] 1 each PO HS PRN PRN Reason: Sleep Or Insomnia Discharge Home Medication List Aspirin (Enteric Coated) [Halfprin] 81 mg PO 1600 10/21/16 [History Confirmed Last Taken 11/10/16 08:35] Loperamide HCl [Loperamide] 2 - 4 mg PO Q4H PRN 10/21/16 [History Confirmed Last Taken Unknown] Magnesium Oxide [Mag-Ox] 400 mg PO BID #120 tablet 10/25/16 [Rx Confirmed Last Taken 11/10/16 08:36] Albuterol/Ipratropium Neb [Duoneb] 3 ml NEB Q6H PRN 11/05/16 [History Confirmed 11/26/16 Last Taken Unknown] Donepezil HCl [Aricept] 5 mg PO 199911/05/16 [History Confirmed 11/26/16 Last Taken 11/10/16 08:36] Mirtazapine [Remeron] 15 mg PO 199911/05/16 [History Confirmed 11/26/16 Last Taken 11/09/16 22:24] Ergocalciferol (Vitamin D2) [Vitamin D2 (ergocalciferol)] 50,000 units PO WE [History Confirmed 11/26/16 Last Taken 11/25/16] Guaifenesin [Mucinex] 1,200 mg PO BID 11/26/16 [History Confirmed 11/26/16 Last Taken Unknown] Lisinopril [Prinivil] 20 mg PO 0800 11/26/16 [History Confirmed 11/26/16 Last Taken Unknown] Melatonin/Pyridoxine HCl (B6) [Melatonin 1 mg Tablet] 1 each PO HS PRN 11/26/16 [History Confirmed 11/26/16 Last Taken Unknown] Metoprolol Succinate (XL) [Toprol Xl] 100 mg PO QAM 11/26/16 [History Confirmed 11/26/16 Last Taken Unknown] Nitroglycerin [Nitrostat] 0.4 mg SL Q5MX3 PRN 11/26/16 [History Confirmed Last Taken Unknown] Omeprazole 20 mg PO 0630 11/26/16 [History Confirmed 11/26/16 Last Taken Unknown ] Paroxetine [Paxil] 40 mg PO 0800 11/26/16 [History Confirmed 11/26/16 Last Taken Unknown] Potassium Chloride [Klor-Con Sprinkle] 10 meq PO 1600 11/26/16 [History Confirmed 11/26/16 Last Taken Unknown] Azithromycin [Zithromax Tri-Heath] 500 mg PO DAILY #3 tablet 12/03/16 [Rx Last Taken Unknown] Cephalexin Monohydrate [Keflex] 500 mg PO Q8H #15 cap 12/03/16 [Rx Last Taken Unknown] Prednisone [Deltasone, Orasone] 6 mg PO .DAILY X 7 DAYS #1 box 12/03/16 [Rx Last Taken Unknown] Probiotic Blend [Francesca Q] 1 tab PO BIDLS #20 tablet 12/03/16 [Rx Last Taken Unknown] Microbiology 11/26/16 08:41 Blood Blood Culture - Final No growth aerobically or anaerobically at 120 hours. NORMAL VALUE = No growth 11/26/16 08:34 Blood Blood Culture - Final No growth aerobically or anaerobically at 120 hours. NORMAL VALUE = No growth 12/03/16 04:40 12/03/16 04:40 Laboratory Results - last 24 hr 12/02/16 12/03/16 12/03/16 10:21 04:40 04:40 WBC 6.5 RBC 3.67 L Hgb 11.3 L Hct 33.7 L MCV 92 MCH 30.7 MCHC 33.4 RDW 16.1 H Plt Count 185 MPV 8.9 Sodium 137 137 Potassium 4.2 4.4 Chloride 95 L 96 L Carbon Dioxide 34 H 36 H Anion Gap 12 9 BUN 32 H 30 H Creatinine 0.90 0.90 Estimated GFR (MDRD) > 60 > 60 Glucose 143 H 87 Calculated Osmolality 273 269 L Calcium 9.0 8.7 O2 Device: Room Air Diet at Discharge: As Tolerated Activity: As Tolerated Discontinue use of:: Alcohol - DC Summary Notes HPI/Notes: Marizol Andrews is an 81 year old woman who presents with a 3 day history of worsening shortness of breath. She has had some heaviness and tightness in her chest, but denies pain. She has had to sleep sitting up. She has had a dry cough, non-productive. She feels like her shortness of breath is worse when she lies down. She does have a prior history of diastolic congestive heart failure , as well as COPD. Hospital Course Note:: Discharge summary on patient named MARIZOL ANDREWS admitted to [facility] on 11/26/16 by Jessica Brice MD. Date of discharge is 12/2016. She was treated for diastolic CHF, respiratory failure, pneumonia, and COPD exacerbation during hospitalization responding nicely to treatment she has ready for discharge today with outpatient physical therapy to strengthen her lower and upper extremities so she can be more functional at home. She declines visiting nurses as she has goats roaming her yard. Cc: Dr. Reyna Total Time: 37 min Code: 23484 (>30min.) - Physical Exam Vital Signs: Last Vital Signs Temp 97.3 F L 12/03/16 07:33 Pulse 99 12/03/16 07:33 Resp 18 12/03/16 07:33 BP 128/87 12/03/16 07:33 Pulse Ox 96 12/03/16 07:33 Oxygen Pulse Oxygen Saturation 96 O2 Device Room Air Oxygen Flow Rate 2 Fraction of Inspired Oxygen ( 30 FIO2) Constitutional: Alert, Distress (respiratory), Well nourished, Other (frail elderly female). negative: Well appearing Oriented to: Time, Person, Place - HEENT Head: Normal Eye: Normal Oropharynx: Normal. negative: Drooling, Exudate, Red Tympanic Membrane: Dull TMJ: Normal Nose: No Symptoms Reported. negative: Bleeding, Congestion, Discharge - Respiratory/Cardiovascular Respiratory: Accessory Muscle Use, Rales, Tachypnea, Wheezes (occasional) Cardiovascular: Tachycardia (104), Irregular. negative: Bradycardia - GI Auscultation: Normal Palpation: Normal (soft, nondistended, no mass, no fluid wave) Tenderness: Non tender Lopez's Sign: Negative Rectal Exam: Deferred - Musculoskeletal Back: Normal, No Palpable Step-off. negative: CVA Tenderness Extremities: Edema (trace to 1+), Pedal Pulse (normal), Radial Pulse (normal). negative: Calf Tenderness, Clubbing, Cyanosis - Integumentary Lymphatics: Normal - Neurologic Memory Impaired: Normal Motor Function: Normal (Motor 5/5 throughout.Normal tone, Pulses 2+ No cyanosis or edema, FROM) Cranial Nerve: Normal (CN II-XII intact sensation, strength 5/5) Cerebellar: Normal Mood Description: Normal Thought: Coherent Perception: Normal
[2016-12-03] MEDS: PAROXETINE 20 MG TAB PO SCH (08:30)
[2016-12-03] MEDS: LISINOPRIL 20 MG TAB PO SCH (08:30)
[2016-12-03 09:14] VITALS: BP 107/64
[2016-12-03] MEDS: FUROSEMIDE 40 MG/4 ML VIAL IV SCH (09:26)
[2016-12-03] MEDS: METOPROLOL (TOPROL-XL) 25 MG TAB PO SCH (09:27)
[2016-12-03] MEDS: CEFTRIAXONE 1 GM in D5W 100 ML IV SCH (09:28)
[2016-12-03 11:42] VITALS: PULSE 106; TEMP 97.9
== END 2016-12-03 11:50 | disposition home or self-care (01) | DRG 291 ==
LOC: ED 05:33 → PCU 07:29
PROVIDERS: ADMIT Family Medicine; ATTEND Internal Medicine
PROC: 03973ZZ Drainage of Right Brachial Artery, Percutaneous Approach (ICD-10-PCS; principal; 2016-11-26)
PROC: 5A09357 Assistance with Respiratory Ventilation, Less than 24 Consecutive Hours, Continuous Positive Airway Pressure (ICD-10-PCS; 2016-11-26)
DX: I50.33 Acute on chronic diastolic (congestive) heart failure (principal); J18.0 Bronchopneumonia, unspecified organism; J96.01 Acute respiratory failure with hypoxia; N17.9 Acute kidney failure, unspecified; I48.91 Unspecified atrial fibrillation; F03.90 Unspecified dementia, unspecified severity, without behavioral disturbance, psychotic disturbance, mood disturbance, and anxiety; J44.0 Chronic obstructive pulmonary disease with (acute) lower respiratory infection; K21.9 Gastro-esophageal reflux disease without esophagitis; I25.2 Old myocardial infarction; Z87.01 Personal history of pneumonia (recurrent); F41.9 Anxiety disorder, unspecified; Z88.5 Allergy status to narcotic agent; Z88.8 Allergy status to other drugs, medicaments and biological substances; Z88.0 Allergy status to penicillin; Z91.041 Radiographic dye allergy status; Z79.82 Long term (current) use of aspirin; Z79.899 Other long term (current) drug therapy; Z87.891 Personal history of nicotine dependence; R94.5 Abnormal results of liver function studies; R62.7 Adult failure to thrive; E87.5 Hyperkalemia
CPT/HCPCS: 36415; 36600; 71010; 76705; 80048; 80053; 80061; 81001; 82803; 83605; 83735; 83880; 84443; 84484; 85025; 85027; 85610; 85730; 87040; 93005; 93306; 94640; 94660; 96372; 97162; 99284; G0237; J0456; J0696; J1650; J1940; J3490; J7060; J7070; J7620